=== PATIENT | female | born 1940 | race Caucasian/White ===

== ENCOUNTER → 2017-10-21 11:10 | Outpatient (CLI) | payer OTHER, SELFPAY ==
--- NOTE | 2017-10-21 | DI.MRI.S_ITS ---
PROCEDURE: MR THORACIC SPINE WO/W CON INDICATIONS: NUMBNESS AND TINGLING OF UPPER AND LOWER EXTREMITI TECHNIQUE: Noncontrast sagittal T1 spin echo and T2 fast spin echo, sagittal STIR, axial T1 and T2 fast spin echo through the thoracic spine. In this patient, coronal T2-weighted images were also performed. After the administration of contrast, axial and sagittal T1 spin echo with fat saturation through the thoracic spine. COMPARISON: [facility], , MRI L-SPINE W/O CONTRAST, 11/19/2005, 15:00. [facility], MR, C-SPINE W&WO CONTRAST, 07/20/2017, 14:10. FINDINGS: Image quality: Diagnostic, with note made of motion artifact. Alignment and curvature: Accentuated thoracic kyphosis is seen. Mild dextroconvex scoliotic curvature is seen. Marrow: Marrow is of normal overall signal. No acute vertebral body compression fractures. Scattered foci are seen, which are hyperintense on T1-weighted and T2-weighted imaging, which are most consistent with benign vertebral body hemangiomas. Spinal cord: Visualized spinal cord is of normal signal and size, without abnormal enhancement. Paraspinous soft tissues: No paravertebral masses or abnormal enhancement. Miscellaneous: Pectus excavatum deformity is seen. At T8-T9, there is a mild central/left disc protrusion, as on series 7 image 26. Minimal central canal narrowing is seen. No neural foraminal narrowing is seen. IMPRESSION: No imaging explanation is found for this patient's presenting symptoms. Dextroconvex scoliotic curvature and accentuated thoracic kyphosis. Pectus excavatum deformity can be seen. Mild focal degenerative change is seen at T8-T9. Dictated by: Federico Clemnets M.D. on 10/21/2017 at 11:39 Approved by: Federico Clements M.D. on 10/21/2017 at 11:44
[2017-10-21 11:56] LABS: Estimated Glomerular Filt Rate > 60.0 mL/min (>60)
== END ==
PROVIDERS: Family Provider Physician Assistant; PCP Physician Assistant; Visit Provider Specialist
DX: R20.0 Anesthesia of skin (principal); R20.2 Paresthesia of skin
CPT/HCPCS: 36415; 72157; 82565; A9579

== ENCOUNTER 2018-02-20 20:09 | Emergency (ER) | payer OTHER, SELFPAY ==
[2018-02-20] VITALS (7 sets, daily range): BP systolic 126–152; BP diastolic 75–123; PULSE 76–133; RESP 15–16; TEMP 34.1–36.3; O2SAT 96–100
[2018-02-20 21:01] LABS: Add Manual Diff / Slide Review NO; Basophils Percent Auto 0.8 % (0-2); Eosinophils Percent Auto 0.3 % (2-4); Hematocrit 46.1 % (36-46); Hemoglobin 15.3 g/dL (12.0-16.0); Lymphocytes Percent Auto 17.1 % (25-40); Mean Corpuscular HGB Conc 33.3 % (30-36); Mean Corpuscular Volume 93.1 fL (80-100); Neutrophils Absolute Auto 7900 /uL (3000-5900); Neutrophils Percent Auto 78.8 % (50-75); Platelet Count 234 X10^3/uL (150-400); Red Blood Cell Count 4.95 X10^6/uL (4.0-5.2); Red Cell Distribution Width 13.7 % (11.6-14.8)
[2018-02-20 21:02] LABS: Prothrombin Time 10.8 SECONDS (10.1-12.7)
[2018-02-20 21:05] LABS: PTT Partial Thromboplastin Tim 23 SECONDS (26.4-36.2)
[2018-02-20 21:07] LABS: Alanine Aminotransferase 38 IU/L (9-52); Albumin 4.3 g/dL (3.5-5.0); Albumin Globulin Ratio 1.6 (1.0-2.8); Alkaline Phosphatase 80 U/L (38-126); Aspartate Aminotransferase 44 IU/L (14-36); BUN Creatinine Ratio 21.7 (6-22); Bilirubin Total 0.6 mg/dL (0.2-1.3); Blood Urea Nitrogen 13 mg/dL (7-17); Calcium 8.8 mg/dL (8.4-10.2); Carbon Dioxide 27 mmol/L (22-32); Chloride 103 mmol/L (98-107); Creatine Kinase 48 U/L (30-135); Estimated Glomerular Filt Rate > 60.0 mL/min (>60); Globulin 2.7 g/dL (1.7-4.1); Glucose 146 mg/dL (80-110); Lipase 188 U/L (23-300); Potassium 3.4 mmol/L (3.4-5.1); Sodium 145 mmol/L (137-145)
[2018-02-20 21:08] LABS: Lactate (Lactic Acid) 1.1 mmol/L (0.7-2.1)
--- NOTE | 2018-02-20 21:23 | DI.CT.S_ITS ---
PROCEDURE: CT HEAD/BRAIN WO CON INDICATIONS: mental status change TECHNIQUE: Noncontrast 4.5 mm thick angled axial sections acquired from the foramen magnum to the vertex, with coronal and sagittal reformats. For radiation dose reduction, the following was used: automated exposure control, adjustment of mA and/or kV according to patient size. COMPARISON: None. FINDINGS: Image quality: Excellent. CSF spaces: Basal cisterns are patent. Small left posterior fossa arachnoid cyst. The ventricles are symmetric in size and shape. Brain: No intracranial bleeds or masses. There is cerebral volume loss for age, with resultant ventricular and sulcal prominence. 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 There are periventricular and deep white matter chronic small vessel ischemic changes. There is intracranial internal carotid artery and vertebral artery atherosclerosis. Skull and face: Calvarium and visualized facial bones appear intact, without suspicious lesions. Sinuses: Visualized sinuses and mastoids are clear. IMPRESSION: No acute intracranial disease process. Dictated by: Hemalatha Joshua MD, PhD on 02/21/2018 at 7:43 Approved by: Hemalatha Joshua MD, PhD on 02/21/2018 at 17:41
[2018-02-20 21:26] LABS: RBC Urine None Seen (0-5/HPF); WBC Urine None Seen (0-5/HPF)
[2018-02-20 21:35] LABS: Bacteria Urine Few (2-10); Culture Indicated Urine Cult Not Indicated; Squamous Epithelial Cell Urine 1-5 /HPF; Urine Amphetamines Negative (Negative); Urine Barbiturates Negative (Negative); Urine Benzodiazepines Negative (Negative); Urine Cocaine Negative (Negative); Urine MDMA Negative (Negative); Urine Methadone Negative (Negative); Urine Methamphetamines Negative (Negative); Urine Morphine/Opi cutoff 2000 Negative (Negative); Urine Oxycodone Negative (Negative); Urine Phencyclidine Negative (Negative); Urine Tetrahydrocannabinol Negative (Negative); Urine Tricyclic Antidepressant Negative (Negative)
[2018-02-20] MEDS: dilTIAZem 5 MG/ML SDV 10 MG IV (21:35)
[2018-02-20 21:57] LABS: HEMOLYSIS < 15 (0-50)
[2018-02-20 21:59] LABS: Troponin I < 0.012 ng/mL (0.01-0.034)
--- NOTE | 2018-02-20 23:35 | ED_ITS ---
HPI - Abdominal Pain General Chief Complaint: Abdominal Pain Stated Complaint: Abd Pain N/V Time Seen by Provider: 02/20/18 20:12 Source: patient, family and EMS Mode of arrival: EMS Limitations: no limitations History of Present Illness HPI narrative: 77-year-old nonsmoker presents by EMS for evaluation of worsening weakness over the course of the day. She had multiple episodes of nausea and vomiting in the absence of pain, fever or chills. She denies any exposure to bad food, ill persons or recent antibiotics. She became significantly weak and laid on the ground for approximately 3 hr prior to EMS arrival. When they found her she had a blood pressure in the 70s. She had an IV placed and was administered IV fluids. She denies any chest pain or shortness of breath. She denies any palpitations or history of atrial fibrillation. Onset (ago): hour(s) Severity: moderate Related Data Home Medications Medication Instructions Recorded Confirmed CHONDROITIN SULFATE/GLUCOSAM #0 03/22/11 (CHRONDROITIN GLUCOSAMINE COMPLEX 400 MG-500 M) ESTRADIOL (#ESTRING) 1 [id number] #0 03/22/11 GLUCOS/MSM/COLG II/C/MAN/HRB21 #0 03/22/11 (Glucosamine-MSM Complex Cap) TRIAMCINOLONE NASAL INHALER #0 03/22/11 (#NASACORT) beclomethasone dipropionate [Qvar] #0 03/22/11 niacin #0 03/22/11 Allergies Allergy/AdvReac Type Severity Reaction Status Date / Time Latex Allergy Mild RASH Uncoded 08/10/17 11:53 Review of Systems Review of Systems All systems reviewed & are unremarkable except as noted in HPI and below Constitutional Denies chills, Denies fever(s), Denies lethargy and Reports weakness Eyes Denies change in vision, Denies eye discharge, Denies irritation and Denies loss of vision ENT Ears, Nose, Mouth, and Throat: Denies change in voice, Denies neck pain and Denies sore throat Cardiovascular Denies chest pain, Denies irregular heart rhythm, Denies lightheadedness, Denies palpitations, Denies dyspnea, Denies dyspnea on exertion and Denies orthopnea Respiratory Denies cough, Denies dyspnea, Denies dyspnea on exertion and Denies wheezing Gastrointestinal Gastrointestinal: Denies abdominal pain, Denies change in bowel habits, Denies diarrhea, Reports nausea and Reports vomiting Genitourinary Denies hematuria, Denies flank pain, Denies urinary incontinence and Denies urinary urgency Musculoskeletal Denies neck pain Integumentary/Breasts Denies pruritus, Denies erythema, Denies rash and Denies wounds Neurologic Denies confusion, Denies loss of vision and Reports weakness Psychiatric Denies anxiety, Denies confusion, Denies depression, Denies homicidal ideation and Denies suicidal ideation Endocrine Denies palpitations Hematologic/Lymphatic Denies easy bruising Allergic/Immunologic Denies wheezing [facility] Medical History HTN (hypertension) (Acute) Exam Narrative Exam Narrative: 77-year-old female resting comfortably Initial Vital Signs Initial Vital Signs: Vital Signs Temperature 93.3 F L 02/20/18 20:22 Pulse Rate 106 H 02/20/18 20:22 Respiratory Rate 15 02/20/18 20:22 Blood Pressure 152/101 H 02/20/18 20:22 Pulse Oximetry 100 02/20/18 20:22 Const General: cooperative, well developed and in distress Nutritional Appearance: well nourished Orientation: alert, awake, oriented x3 and not confused HENTX Head: normocephalic and atraumatic Ears: external ears normal and TM's normal bilaterally Nose: external nose normal and No nasal discharge Face and sinus: sinuses nontender, face symmetric, no sinus tenderness and dry mucous membranes Teeth and gingiva: dentition normal Throat: tonsils normal and uvula midline Eyes General: appearance normal, both eyes and all related structures Eyelids: eyelids normal Conjunctivae: conjunctivae normal Sclera: sclerae normal Pupils: PERRL EOM: EOM intact bilaterally Chest Chest: normal inspection of the chest Resp Effort & Inspection: normal respiratory effort, able to speak in complete sentences, no respiratory distress and no use of accessory muscles Auscultation: clear to auscultation bilaterally, no rales, no rhonchi and no wheezes Cardio Rate: tachycardic Rhythm: abnormal rhythm Heart Sounds: no click, no gallops, no murmurs and no rubs Pulses: normal peripheral pulses GI Inspection: non-distended Palpation: soft, no hepatosplenomegaly, No guarding, No pulsatile mass and No tender Auscultation: normal bowel sounds Back/Spine/Pelvis Back: No CVA tenderness Cervical Spine: cervical ROM normal and No pain with cervical ROM Thoracic/Lumbar Spine: thoracic and lumbar spine normal to inspection Neuro General: alert, awake and oriented x3 Speech: speech normal Gait: normal gait Other: Patient is alert and oriented x3 with a GCS15 but is in some immeasurable way slightly sluggish in her responses Extrem General: full ROM, no clubbing, cyanosis or edema, no pedal edema and no calf tenderness Psych Appearance: well kempt Mental Status: mental status grossly normal Attitude: cooperative Thought Content: normal and suicidality Judgment: judgment good Course Course Narrative: Patient arrived obviously dehydrated but improved after fluids by EMS. Initial EKG notes AFib in the 130s without signs of ischemia. She was given a 2nd bag of fluid and had Cardizem 10 mg administered which converted her to a normal sinus rhythm in the 60s to 70s. At no point did the patient have palpitations, chest pain or shortness of breath. Labs are by enlarge normal. Orthostatics were performed here in the department and though she remained asymptomatic her heart rate jumped to the 130s with sitting and standing. Given her orthostasis and newly discovered atrial fibrillation patient is not appropriate for discharge. There are no remaining telemetry beds at our facility and [facility] has placed her at [facility] in [place] with the receiving doctor Levy Curran. Orders Ordered: ED Orders 02/20/18 20:13 EKG-12 Lead Stat 02/20/18 20:44 Blood Culture Stat Complete Blood Count AUTO DIFF Stat Comprehensive Metabolic Panel Stat Lactate (Lactic Acid) Stat Lipase Stat Partial Thromboplastin Time Stat Prothrombin Time INR Stat Troponin & CK Cardiac Panel Stat 02/20/18 21:10 Urine Drug Screen, Rapid Stat Urine Microscopic Stat 02/20/18 21:23 CT head/brain wo con Stat Enoxaparin Sodium (Lovenox) 40 mg SUBCUT DAILY [facility] Last Admin: 02/21/18 00:09 Dose: 40 mg Discontinued Medications Diltiazem HCl (Cardizem) 10 mg IV NOW ONE Stop: 02/20/18 21:31 Last Admin: 02/20/18 21:35 Dose: 10 mg Vital Signs - 8 hr 02/20/18 20:22 02/20/18 21:01 02/20/18 21:34 Temperature 93.3 F L 94.1 F L 97.4 F L Pulse Rate 106 H 133 H 123 H Pulse Rate [Orthostatic Lying] Pulse Rate [Orthostatic Sitting] Pulse Rate [Orthostatic Standing] Respiratory Rate 15 16 16 Blood Pressure 152/101 H Blood Pressure [Left Arm] 145/123 H 129/88 Blood Pressure [Orthostatic Lying] Blood Pressure [Orthostatic Sitting] Blood Pressure [Orthostatic Standing] Pulse Oximetry 100 99 97 02/20/18 21:35 02/20/18 22:17 02/20/18 22:57 Temperature Pulse Rate 115 H 91 H Pulse Rate [Orthostatic Lying] 94 H Pulse Rate [Orthostatic Sitting] 130 H Pulse Rate [Orthostatic Standing] 88 Respiratory Rate Blood Pressure 129/88 Blood Pressure [Left Arm] 138/82 Blood Pressure [Orthostatic Lying] 133/75 Blood Pressure [Orthostatic Sitting] 130/94 H Blood Pressure [Orthostatic Standing] 133/92 H Pulse Oximetry 96 02/20/18 23:13 02/21/18 00:53 Temperature Pulse Rate 76 105 H Pulse Rate [Orthostatic Lying] Pulse Rate [Orthostatic Sitting] Pulse Rate [Orthostatic Standing] Respiratory Rate Blood Pressure Blood Pressure [Left Arm] 126/77 151/62 H Blood Pressure [Orthostatic Lying] Blood Pressure [Orthostatic Sitting] Blood Pressure [Orthostatic Standing] Pulse Oximetry 98 100 MDM - Abdominal Pain Lab Data Attestation: I reviewed the patient's lab results. Result diagrams: 02/20/18 20:44 02/20/18 20:44 Lab Results 02/20/18 02/20/18 02/20/18 Range/Units 20:44 20:44 20:44 WBC 10.0 (4.5-11.0) X10^3/uL RBC 4.95 (4.0-5.2) X10^6/uL Hgb 15.3 (12.0-16.0) g/dL Hct 46.1 H (36-46) % MCV 93.1 (80-100) fL MCH 31.0 (26-34) PG MCHC 33.3 (30-36) % RDW 13.7 (11.6-14.8) % Plt Count 234 (150-400) X10^3/uL Neut % (Auto) 78.8 H (50-75) % Lymph % (Auto) 17.1 L (25-40) % [place] % (Auto) 3.0 (3-14) % Eos % (Auto) 0.3 L (2-4) % Baso % (Auto) 0.8 (0-2) % Neut # (Auto) 7900 H (8462-1966) /uL PT 10.8 (10.1-12.7) SECONDS INR 1.0 (0.9-1.3) APTT 23 L (26.4-36.2) SECONDS Sodium 145 (137-145) mmol/L Potassium 3.4 (3.4-5.1) mmol/L Chloride 103 (98-107) mmol/L Carbon Dioxide 27 (22-32) mmol/L BUN 13 (7-17) mg/dL Creatinine 0.60 (0.52-1.04) mg/dL Estimated GFR > 60.0 (>60) mL/min BUN/Creatinine Ratio 21.7 (6-22) Glucose 146 H (80-110) mg/dL Lactate (0.7-2.1) mmol/L Calcium 8.8 (8.4-10.2) mg/dL Total Bilirubin 0.6 (0.2-1.3) mg/dL AST 44 H (14-36) IU/L ALT 38 (9-52) IU/L Alkaline Phosphatase 80 (38-126) U/L Total Creatine Kinase 48 (30-135) U/L CK-MB (CK-2) TNP CK-MB (CK-2) Rel Index TNP Troponin I < 0.012 (0.01-0.034) ng/mL Total Protein 7.0 (6.3-8.2) g/dL Albumin 4.3 (3.5-5.0) g/dL Globulin 2.7 (1.7-4.1) g/dL Albumin/Globulin Ratio 1.6 (1.0-2.8) Lipase 188 (23-300) U/L Urine RBC (0-5/HPF) Urine WBC (0-5/HPF) Ur Squamous Epith Cells Urine Bacteria (None) Ur Culture Indicated? Micro UA Comment Urine Opiates Screen (Negative) Ur Oxycodone Screen (Negative) Urine Methadone Screen (Negative) Ur Barbiturates Screen (Negative) U Tricyclic Antidepress (Negative) Ur Phencyclidine Scrn (Negative) Ur Amphetamines Screen (Negative) U Methamphetamines Scrn (Negative) Ur MDMA Scrn (Ecstasy) (Negative) U Benzodiazepines Scrn (Negative) Urine Cocaine Screen (Negative) U Marijuana (THC) Screen (Negative) 02/20/18 02/20/18 02/20/18 Range/Units 20:44 21:10 21:10 WBC (4.5-11.0) X10^3/uL RBC (4.0-5.2) X10^6/uL Hgb (12.0-16.0) g/dL Hct (36-46) % MCV (80-100) fL MCH (26-34) PG MCHC (30-36) % RDW (11.6-14.8) % Plt Count (150-400) X10^3/uL Neut % (Auto) (50-75) % Lymph % (Auto) (25-40) % [place] % (Auto) (3-14) % Eos % (Auto) (2-4) % Baso % (Auto) (0-2) % Neut # (Auto) (1772-7382) /uL PT (10.1-12.7) SECONDS INR (0.9-1.3) APTT (26.4-36.2) SECONDS Sodium (137-145) mmol/L Potassium (3.4-5.1) mmol/L Chloride (98-107) mmol/L Carbon Dioxide (22-32) mmol/L BUN (7-17) mg/dL Creatinine (0.52-1.04) mg/dL Estimated GFR (>60) mL/min BUN/Creatinine Ratio (6-22) Glucose (80-110) mg/dL Lactate 1.1 (0.7-2.1) mmol/L Calcium (8.4-10.2) mg/dL Total Bilirubin (0.2-1.3) mg/dL AST (14-36) IU/L ALT (9-52) IU/L Alkaline Phosphatase (38-126) U/L Total Creatine Kinase (30-135) U/L CK-MB (CK-2) CK-MB (CK-2) Rel Index Troponin I (0.01-0.034) ng/mL Total Protein (6.3-8.2) g/dL Albumin (3.5-5.0) g/dL Globulin (1.7-4.1) g/dL Albumin/Globulin Ratio (1.0-2.8) Lipase (23-300) U/L Urine RBC None seen (0-5/HPF) Urine WBC None seen (0-5/HPF) Ur Squamous Epith Cells 1-5 /hpf Urine Bacteria Few (2-10) H (None) Ur Culture Indicated? Cult not indicated Micro UA Comment Not Reportable Urine Opiates Screen Negative (Negative) Ur Oxycodone Screen Negative (Negative) Urine Methadone Screen Negative (Negative) Ur Barbiturates Screen Negative (Negative) U Tricyclic Antidepress Negative (Negative) Ur Phencyclidine Scrn Negative (Negative) Ur Amphetamines Screen Negative (Negative) U Methamphetamines Scrn Negative (Negative) Ur MDMA Scrn (Ecstasy) Negative (Negative) U Benzodiazepines Scrn Negative (Negative) Urine Cocaine Screen Negative (Negative) U Marijuana (THC) Screen Negative (Negative) Point of care testing: Urine Dip Bedside Urine Glucose Negative Bedside Urine Bilirubin - Negative Bedside Urine Ketone ++ 40 Urine Specific [place] 1.015 Bedside Urine Occult Blood - Negative Bedside Urine pH 7.0 Bedside Urine Protein - Negative Bedside Urine Urobilinogen - Negative Bedside Urine Nitrite - Negative Bedside Urine Leukocytes - Negative Esterase ECG Data Attestation: I personally reviewed and interpreted this ECG as follows: Prior ECG tracings: not available for review Interpretation: atrial fib in 130s, no ischemia with ST depression/elevation or T wave inversion MDM Narrative Medical decision making narrative: no beds at our facility, call to [facility], they agree with need for admission and wish to place patient at [facility] Discharge Plan Departure Patient Disposition: er [facility] Clinical Impression: Atrial fibrillation, Orthostasis Prescriptions: No Action TRIAMCINOLONE NASAL INHALER (#NASACORT) Qty: 0 RF: 0 beclomethasone dipropionate [Qvar] 80 MCG/PUFF aerosol Qty: 0 RF: 0 CHONDROITIN SULFATE/GLUCOSAM (CHRONDROITIN GLUCOSAMINE COMPLEX 400 MG-500 M) Qty: 0 RF: 0 GLUCOS/MSM/COLG II/C/MAN/HRB21 (Glucosamine-MSM Complex Cap) Qty: 0 RF: 0 ESTRADIOL (#ESTRING) 1 [id number] Qty: 0 RF: 0 niacin 250 MG tablet Qty: 0 RF: 0
[2018-02-21] MEDS: ENOXAPARIN 40 MG/0.4 ML SYRINGE SUBCUT (00:09)
[2018-02-21 00:53] VITALS: BP 151/62; PULSE 105; O2SAT 100
[2018-02-21 02:10] VITALS: BP 109/60; PULSE 59; RESP 15; O2SAT 95
[2018-02-21 02:50] VITALS: BP 118/60; PULSE 74; O2SAT 97
[2018-02-21 03:00] VITALS: BP 118/60; PULSE 85; RESP 16; O2SAT 98
== END 2018-02-21 03:07 | disposition short-term general hospital (02) ==
PROVIDERS: Emergency Provider Emergency Medicine; Family Provider Physician Assistant; PCP Physician Assistant
DX: I48.91 Unspecified atrial fibrillation (principal); I95.1 Orthostatic hypotension
CPT/HCPCS: 36415; 70450; 80053; 80305; 81003; 81015; 82550; 83605; 83690; 84484; 85025; 85610; 85730; 87040; 93005; 93010; 96374; 99284; 99285; J1650

== ENCOUNTER 2018-05-30 17:01 | Emergency (ER) | payer OTHER, SELFPAY ==
[2018-05-30 17:25] VITALS: BP 185/86; PULSE 62; RESP 15; TEMP 36.9; O2SAT 100; BMI 18.3
--- NOTE | 2018-05-30 17:29 | DI.RAD.S_ITS ---
PROCEDURE: XR KNEE RT 3V INDICATIONS: right knee pain s/p fall TECHNIQUE: 3 views of the knee were acquired. COMPARISON: None. FINDINGS: Bones: No fractures or dislocations. There is minimal joint space narrowing in the medial compartment and lateral patellofemoral compartment. No suspicious bony lesions. Soft tissues: There is a small joint effusion. No suspicious soft tissue calcifications. IMPRESSION: 1. No fracture or dislocation. 2. Small joint effusion. 3. Mild degenerative changes. Dictated by: Nish Delgado M.D. on 05/30/2018 at 18:16 Approved by: Nish Delgado M.D. on 05/30/2018 at 18:17
--- NOTE | 2018-05-30 20:35 | ED.LOWEXIN ---
HPI - Extremity Injury (Lower) General Chief Complaint: Extremity Injury, Lower Stated Complaint: KNEE PAIN S/P FALL Time Seen by Provider: 05/30/18 20:06 Source: patient and family Mode of arrival: ambulatory Limitations: no limitations History of Present Illness HPI Narrative: 78-year-old female, nonsmoker with early dementia presents with multiple family members and a chief complaint right knee pain after a trip and fall earlier today. She fell forward landing on her right knee on concrete. She denies any twisting motion. She has no head neck or back pain. She denies any hip or ankle pain. Her pain is worse when she bends it and improves with rest MD complaint: knee injury Onset (ago): hour(s) Type of Injury: blunt Place: street/outdoors Severity: moderate Relieving factors: immobilization and rest Exacerbating factors: weight bearing, movement and palpation Context: fall and direct blow Associated symptoms: able to partially bear weight Other symptoms: none Related Data Home Medications Medication Instructions Recorded Confirmed CHONDROITIN SULFATE/GLUCOSAM #0 03/22/11 (CHRONDROITIN GLUCOSAMINE COMPLEX 400 MG-500 M) ESTRADIOL (#ESTRING) 1 [id number] #0 03/22/11 GLUCOS/MSM/COLG II/C/MAN/HRB21 #0 03/22/11 (Glucosamine-MSM Complex Cap) TRIAMCINOLONE NASAL INHALER #0 03/22/11 (#NASACORT) niacin #0 03/22/11 albuterol sulfate [Ventolin HFA] 2 puff INHALATION Q4-6H PRN 05/30/18 05/30/18 baclofen 10 mg PO DAILY 05/30/18 05/30/18 beclomethasone dipropionate [Qvar 2 puff INHALATION DAILY 05/30/18 05/30/18 RediHaler] donepezil 10 mg PO DAILY 05/30/18 05/30/18 Allergies Allergy/AdvReac Type Severity Reaction Status Date / Time latex AdvReac Verified 05/30/18 17:25 Review of Systems Constitutional Denies chills, Denies fever(s), Denies lethargy and Denies weakness Eyes Denies change in vision, Denies eye discharge, Denies irritation and Denies loss of vision ENT Ears, Nose, Mouth, and Throat: Denies change in voice, Denies neck pain and Denies sore throat Cardiovascular Denies chest pain, Denies irregular heart rhythm, Denies lightheadedness, Denies palpitations, Denies dyspnea, Denies dyspnea on exertion and Denies orthopnea Respiratory Denies cough, Denies dyspnea, Denies dyspnea on exertion and Denies wheezing Gastrointestinal Gastrointestinal: Denies abdominal pain, Denies change in bowel habits, Denies diarrhea, Denies nausea and Denies vomiting Genitourinary Denies hematuria, Denies flank pain, Denies urinary incontinence and Denies urinary urgency Musculoskeletal Reports abnormal gait, Reports limited range of motion and Denies neck pain Integumentary/Breasts Denies pruritus, Denies erythema, Denies rash and Denies wounds Neurologic Reports abnormal gait, Denies confusion, Denies loss of vision and Denies weakness Psychiatric Denies anxiety, Denies confusion, Denies depression, Denies homicidal ideation and Denies suicidal ideation Endocrine Denies palpitations Hematologic/Lymphatic Denies easy bruising Allergic/Immunologic Denies wheezing [facility] Medical History HTN (hypertension) (Acute) Social History Smoking Status: Smoker, status unknown Social History Smoking Status: Smoker, status unknown Exam Narrative Exam Narrative: GEN: 78-year-old female, pleasant, in minimal distress when resting EYES: Pupils are equal, round, and reactive to light and accommodation. Extraoccular muscles are intact bilaterally. There is no subconjunctival hemorrhage or exudate. CHEST: Lungs are clear to auscultation bilaterally and free of wheezes, rales, or rhonchi. Heart rate is regular rhythm, there are no murmurs, clicks, rubs, or gallops. There is no chest wall tenderness. ABD: Abdomen is soft and nontender. There is no guarding or rebound. Bowel sounds are normal in all 4 quadrants. There is no mass or organomegaly. EXT: No obvious external manifestation of injury. No effusion, redness or warmth. Minimal tenderness anteriorly along patella. No joint line tenderness medially or laterally. No ligamentous instability. SKIN: Warm, pink, and dry. No erythema or rash Initial Vital Signs Initial Vital Signs: Vital Signs Temperature 98.4 F 05/30/18 17:25 Pulse Rate 62 05/30/18 17:25 Respiratory Rate 15 05/30/18 17:25 Blood Pressure 185/86 H 05/30/18 17:25 Pulse Oximetry 100 05/30/18 17:25 Course Orders Ordered: ED Orders 05/30/18 21:22 CT LE RT wo con Stat Reevaluation(s) Reevaluation #1: X-ray and exam are reassuring. Ambulation attempt requires assistance and patient has pain with ambulation therefore CT ordered Vital Signs - 8 hr 05/30/18 22:25 Pulse Rate 69 Respiratory Rate 17 Blood Pressure [Left Arm] 170/69 H Pulse Oximetry 97 MDM - Extremity Injury (Lower) Medical Records Attestation: I reviewed the patient's medical records. Imaging Data CT Knee: Radiologist's impression: [address] [address] [address] Scan Report Signed Patient: Karine GrantMR#: [id number] : 9Acct:[id number] Age/Sex: 78 / FDate of Service: 05/30/18 Loc: ED Accession Number: [id number] Procedure: CT LE RT wo con Ordering Provider: Gilberto Lobato D.O. PROCEDURE: CT LE RT WO CON INDICATIONS: R knee pain, s/p fall, normal xray TECHNIQUE: Noncontrast 1-1.5 mm axial sections acquired from the mid-patella to the proximal tibia, with coronal and sagittal reformats. COMPARISON: [facility], , XR KNEE RT 3V, 05/30/2018, 17:35. FINDINGS: Image quality: Excellent. Bones: No displaced or depressed fracture identified. There is tricompartmental osteophytosis. Mild joint space narrowing is demonstrated within the medial and lateral compartments. There is slight lateral shift of the patella. Soft tissues: There is a small to moderate knee joint effusion. No definite lipohemarthrosis. Evaluation of the ACL and PCL is limited on CT. The quadriceps and patella tendons appear intact. The medial collateral ligament and lateral collateral complex appear grossly intact. There is nonspecific fat stranding within the infrapatellar fat pad. IMPRESSION: 1. No displaced or depressed fracture identified. 2. Small to moderate joint effusion. 3. If clinical concern persists for soft tissue injury, further evaluation may be obtained with MRI. Dictated by: Nish Delgado M.D. on 05/30/2018 at 22:13 Approved by: Nish Delgado M.D. on 05/30/2018 at 22:17 [facility] Narrative Medical decision making narrative: Multiple etiologies for patient's symptoms considered including: [Fracture, versus contusion, versus dislocation, versus internal derangement versus other] Patient's symptoms improved or duration of stay with above-stated therapies. Findings and discharge diagnosis discussed with patient/family followed by verbalization of understanding Return precautions discussed with patient/family whom verbalize understanding. Discharge Plan Departure Patient Disposition: Home Clinical Impression: Contusion of knee Discharge Date/Time: 05/30/18 22:57 Interventions: ED Discharge Assessment Last Done: 05/30/18 22:57 Instructions: DI for Contusion Activity Restrictions/Additional Instructions: *You have been diagnosed with [ right knee contusion ] *What to do: * continue to take medications as directed *Follow up with your primary care provider in 2-3 days, call for an appointment. Let them know you were seen in the Emergency Department and that we ask that you be seen in follow up *Return to ER if you should have any new, worsening or concerning symptoms Prescriptions: No Action TRIAMCINOLONE NASAL INHALER (#NASACORT) Qty: 0 RF: 0 CHONDROITIN SULFATE/GLUCOSAM (CHRONDROITIN GLUCOSAMINE COMPLEX 400 MG-500 M) Qty: 0 RF: 0 GLUCOS/MSM/COLG II/C/MAN/HRB21 (Glucosamine-MSM Complex Cap) Qty: 0 RF: 0 ESTRADIOL (#ESTRING) 1 [id number] Qty: 0 RF: 0 niacin 250 MG tablet Qty: 0 RF: 0 donepezil 10 mg tablet 10 mg PO DAILY RF: 0 baclofen 10 mg tablet 10 mg PO DAILY RF: 0 albuterol sulfate [Ventolin HFA] 90 mcg/actuation HFA aerosol inhaler 2 puff Inhalation Q4-6H PRN (Reason: Shortness Of Breath) RF: 0 beclomethasone dipropionate [Qvar RediHaler] 80 mcg/actuation HFA aerosol breath activated 2 puff Inhalation DAILY RF: 0
--- NOTE | 2018-05-30 20:41 | ED_ITS ---
HPI - Extremity Injury (Lower) General Chief Complaint: Extremity Injury, Lower Stated Complaint: KNEE PAIN S/P FALL Time Seen by Provider: 05/30/18 20:06 Source: patient and family Mode of arrival: ambulatory Limitations: no limitations History of Present Illness HPI Narrative: 78-year-old female, nonsmoker with early dementia presents with multiple family members and a chief complaint right knee pain after a trip and fall earlier today. She fell forward landing on her right knee on concrete. She denies any twisting motion. She has no head neck or back pain. She denies any hip or ankle pain. Her pain is worse when she bends it and improves with rest MD complaint: knee injury Onset (ago): hour(s) Type of Injury: blunt Place: street/outdoors Severity: moderate Relieving factors: immobilization and rest Exacerbating factors: weight bearing, movement and palpation Context: fall and direct blow Associated symptoms: able to partially bear weight Other symptoms: none Related Data Home Medications Medication Instructions Recorded Confirmed CHONDROITIN SULFATE/GLUCOSAM #0 03/22/11 (CHRONDROITIN GLUCOSAMINE COMPLEX 400 MG-500 M) ESTRADIOL (#ESTRING) 1 [id number] #0 03/22/11 GLUCOS/MSM/COLG II/C/MAN/HRB21 #0 03/22/11 (Glucosamine-MSM Complex Cap) TRIAMCINOLONE NASAL INHALER #0 03/22/11 (#NASACORT) niacin #0 03/22/11 albuterol sulfate [Ventolin HFA] 2 puff INHALATION Q4-6H PRN 05/30/18 05/30/18 baclofen 10 mg PO DAILY 05/30/18 05/30/18 beclomethasone dipropionate [Qvar 2 puff INHALATION DAILY 05/30/18 05/30/18 RediHaler] donepezil 10 mg PO DAILY 05/30/18 05/30/18 Allergies Allergy/AdvReac Type Severity Reaction Status Date / Time latex AdvReac Verified 05/30/18 17:25 Review of Systems Constitutional Denies chills, Denies fever(s), Denies lethargy and Denies weakness Eyes Denies change in vision, Denies eye discharge, Denies irritation and Denies loss of vision ENT Ears, Nose, Mouth, and Throat: Denies change in voice, Denies neck pain and Denies sore throat Cardiovascular Denies chest pain, Denies irregular heart rhythm, Denies lightheadedness, Denies palpitations, Denies dyspnea, Denies dyspnea on exertion and Denies orthopnea Respiratory Denies cough, Denies dyspnea, Denies dyspnea on exertion and Denies wheezing Gastrointestinal Gastrointestinal: Denies abdominal pain, Denies change in bowel habits, Denies diarrhea, Denies nausea and Denies vomiting Genitourinary Denies hematuria, Denies flank pain, Denies urinary incontinence and Denies urinary urgency Musculoskeletal Reports abnormal gait, Reports limited range of motion and Denies neck pain Integumentary/Breasts Denies pruritus, Denies erythema, Denies rash and Denies wounds Neurologic Reports abnormal gait, Denies confusion, Denies loss of vision and Denies weakness Psychiatric Denies anxiety, Denies confusion, Denies depression, Denies homicidal ideation and Denies suicidal ideation Endocrine Denies palpitations Hematologic/Lymphatic Denies easy bruising Allergic/Immunologic Denies wheezing [facility] Medical History HTN (hypertension) (Acute) Social History Smoking Status: Smoker, status unknown Social History Smoking Status: Smoker, status unknown Exam Narrative Exam Narrative: GEN: 78-year-old female, pleasant, in minimal distress when resting EYES: Pupils are equal, round, and reactive to light and accommodation. Extraoccular muscles are intact bilaterally. There is no subconjunctival hemorrhage or exudate. CHEST: Lungs are clear to auscultation bilaterally and free of wheezes, rales, or rhonchi. Heart rate is regular rhythm, there are no murmurs, clicks, rubs, or gallops. There is no chest wall tenderness. ABD: Abdomen is soft and nontender. There is no guarding or rebound. Bowel sounds are normal in all 4 quadrants. There is no mass or organomegaly. EXT: No obvious external manifestation of injury. No effusion, redness or warmth. Minimal tenderness anteriorly along patella. No joint line tenderness medially or laterally. No ligamentous instability. SKIN: Warm, pink, and dry. No erythema or rash Initial Vital Signs Initial Vital Signs: Vital Signs Temperature 98.4 F 05/30/18 17:25 Pulse Rate 62 05/30/18 17:25 Respiratory Rate 15 05/30/18 17:25 Blood Pressure 185/86 H 05/30/18 17:25 Pulse Oximetry 100 05/30/18 17:25 Course Orders Ordered: ED Orders 05/30/18 21:22 CT LE RT wo con Stat Reevaluation(s) Reevaluation #1: X-ray and exam are reassuring. Ambulation attempt requires assistance and patient has pain with ambulation therefore CT ordered Vital Signs - 8 hr 05/30/18 22:25 Pulse Rate 69 Respiratory Rate 17 Blood Pressure [Left Arm] 170/69 H Pulse Oximetry 97 MDM - Extremity Injury (Lower) Medical Records Attestation: I reviewed the patient's medical records. Imaging Data CT Knee: Radiologist's impression: [address] [address] [address] Scan Report Signed Patient: Karine GrantMR#: [id number] : 9Acct:[id number] Age/Sex: 78 / FDate of Service: 05/30/18 Loc: ED Accession Number: [id number] Procedure: CT LE RT wo con Ordering Provider: Gilberto Lobato D.O. PROCEDURE: CT LE RT WO CON INDICATIONS: R knee pain, s/p fall, normal xray TECHNIQUE: Noncontrast 1-1.5 mm axial sections acquired from the mid-patella to the proximal tibia, with coronal and sagittal reformats. COMPARISON: [facility], , XR KNEE RT 3V, 05/30/2018, 17:35. FINDINGS: Image quality: Excellent. Bones: No displaced or depressed fracture identified. There is tricompartmental osteophytosis. Mild joint space narrowing is demonstrated within the medial and lateral compartments. There is slight lateral shift of the patella. Soft tissues: There is a small to moderate knee joint effusion. No definite lipohemarthrosis. Evaluation of the ACL and PCL is limited on CT. The quadriceps and patella tendons appear intact. The medial collateral ligament and lateral collateral complex appear grossly intact. There is nonspecific fat stranding within the infrapatellar fat pad. IMPRESSION: 1. No displaced or depressed fracture identified. 2. Small to moderate joint effusion. 3. If clinical concern persists for soft tissue injury, further evaluation may be obtained with MRI. Dictated by: Nish Delgado M.D. on 05/30/2018 at 22:13 Approved by: Nish Delgado M.D. on 05/30/2018 at 22:17 [facility] Narrative Medical decision making narrative: Multiple etiologies for patient's symptoms considered including: [Fracture, versus contusion, versus dislocation, versus internal derangement versus other] Patient's symptoms improved or duration of stay with above-stated therapies. Findings and discharge diagnosis discussed with patient/family followed by verbalization of understanding Return precautions discussed with patient/family whom verbalize understanding. Discharge Plan Departure Patient Disposition: Home Clinical Impression: Contusion of knee Discharge Date/Time: 05/30/18 22:57 Interventions: ED Discharge Assessment Last Done: 05/30/18 22:57 Instructions: DI for Contusion Activity Restrictions/Additional Instructions: *You have been diagnosed with [ right knee contusion ] *What to do: * continue to take medications as directed *Follow up with your primary care provider in 2-3 days, call for an appointment. Let them know you were seen in the Emergency Department and that we ask that you be seen in follow up *Return to ER if you should have any new, worsening or concerning symptoms Prescriptions: No Action TRIAMCINOLONE NASAL INHALER (#NASACORT) Qty: 0 RF: 0 CHONDROITIN SULFATE/GLUCOSAM (CHRONDROITIN GLUCOSAMINE COMPLEX 400 MG-500 M) Qty: 0 RF: 0 GLUCOS/MSM/COLG II/C/MAN/HRB21 (Glucosamine-MSM Complex Cap) Qty: 0 RF: 0 ESTRADIOL (#ESTRING) 1 [id number] Qty: 0 RF: 0 niacin 250 MG tablet Qty: 0 RF: 0 donepezil 10 mg tablet 10 mg PO DAILY RF: 0 baclofen 10 mg tablet 10 mg PO DAILY RF: 0 albuterol sulfate [Ventolin HFA] 90 mcg/actuation HFA aerosol inhaler 2 puff Inhalation Q4-6H PRN (Reason: Shortness Of Breath) RF: 0 beclomethasone dipropionate [Qvar RediHaler] 80 mcg/actuation HFA aerosol breath activated 2 puff Inhalation DAILY RF: 0
--- NOTE | 2018-05-30 21:22 | DI.CT.S_ITS ---
PROCEDURE: CT LE RT WO CON INDICATIONS: R knee pain, s/p fall, normal xray TECHNIQUE: Noncontrast 1-1.5 mm axial sections acquired from the mid-patella to the proximal tibia, with coronal and sagittal reformats. COMPARISON: [facility], CR, XR KNEE RT 3V, 05/30/2018, 17:35. FINDINGS: Image quality: Excellent. Bones: No displaced or depressed fracture identified. There is tricompartmental osteophytosis. Mild joint space narrowing is demonstrated within the medial and lateral compartments. There is slight lateral shift of the patella. Soft tissues: There is a small to moderate knee joint effusion. No definite lipohemarthrosis. Evaluation of the ACL and PCL is limited on CT. The quadriceps and patella tendons appear intact. The medial collateral ligament and lateral collateral complex appear grossly intact. There is nonspecific fat stranding within the infrapatellar fat pad. IMPRESSION: 1. No displaced or depressed fracture identified. 2. Small to moderate joint effusion. 3. If clinical concern persists for soft tissue injury, further evaluation may be obtained with MRI. Dictated by: Nish Delgado M.D. on 05/30/2018 at 22:13 Approved by: Nish Delgado M.D. on 05/30/2018 at 22:17
[2018-05-30 22:25] VITALS: BP 170/69; PULSE 69; RESP 17; O2SAT 97
== END 2018-05-30 22:57 | disposition home or self-care (01) ==
PROVIDERS: Emergency Provider Emergency Medicine; Family Provider Physician Assistant; PCP Physician Assistant
DX: S80.01XA Contusion of right knee, initial encounter (principal); W01.0XXA Fall on same level from slipping, tripping and stumbling without subsequent striking against object, initial encounter
CPT/HCPCS: 73562; 73700; 99283; 99284

== ENCOUNTER 2018-09-06 09:09 | Inpatient (IN) | payer OTHER, SELFPAY ==
[2018-09-06] VITALS (9 sets, daily range): BP systolic 111–148; BP diastolic 53–73; PULSE 58–77; RESP 14–22; TEMP 36.9–37.2; O2SAT 93–100; BMI 16.6
--- NOTE | 2018-09-06 09:42 | ED.FEMALEGU ---
HPI - Female Genitourinary General Chief complaint: Urogenital-Female Stated complaint: vaginal bleeding x2 days Time Seen by Provider: 09/06/18 09:30 Source: patient Mode of arrival: ambulatory Limitations: no limitations History of Present Illness HPI Narrative: 78-year-old nonsmoker with history of asthma presents with a friend and a chief complaint of some blood in the toilet after urinating and taking bowel movements. She is unclear if it is vaginal, in her urine or rectal. She otherwise feels a bit weak and run down and has some abnormal urinating. She takes Pradaxa for AFib. She denies any chest pain or shortness of breath. she denies any headaches, nausea or vomiting. she has had no fever or shaking chills. MD Complaint: dysuria and vaginal bleeding Onset (ago): day(s) Severity: mild Quality: Aching Duration: constant Relieving factors: none Exacerbating factors: none Urinary symptoms: Dysuria and Foul Smelling Urine Vaginal discharge: blood Patient : No Related Data Home Medications Medication Instructions Recorded Confirmed estradiol [Estring] 1 ea VAGINAL [id number] #0 03/22/11 09/06/18 albuterol sulfate [Ventolin HFA] 2 puff INHALATION Q4-6H PRN 05/30/18 09/06/18 baclofen 20 mg PO BEDTIME 05/30/18 09/06/18 beclomethasone dipropionate [Qvar 2 puff INHALATION DAILY 05/30/18 09/06/18 RediHaler] donepezil 20 mg PO DAILY 05/30/18 09/06/18 amlodipine 7.5 mg PO DAILY 09/06/18 09/06/18 dabigatran etexilate [Pradaxa] 150 mg PO BID 09/06/18 09/06/18 lisinopril 20 mg PO BID 09/06/18 09/06/18 metoprolol tartrate 12.5 mg PO BID 09/06/18 09/06/18 quetiapine 25 mg PO DAILY 09/06/18 09/06/18 trospium 60 mg PO DAILY 09/06/18 09/06/18 Allergies Allergy/AdvReac Type Severity Reaction Status Date / Time latex AdvReac Verified 09/06/18 09:39 Review of Systems Constitutional Denies chills, Denies fever(s), Denies lethargy and Denies weakness Eyes Denies change in vision, Denies eye discharge, Denies irritation and Denies loss of vision ENT Ears, Nose, Mouth, and Throat: Denies change in voice, Denies neck pain and Denies sore throat Cardiovascular Denies chest pain, Denies irregular heart rhythm, Denies lightheadedness, Denies palpitations, Denies dyspnea, Denies dyspnea on exertion and Denies orthopnea Respiratory Denies cough, Denies dyspnea, Denies dyspnea on exertion and Denies wheezing Gastrointestinal Gastrointestinal: Denies abdominal pain, Reports hematochezia, Denies change in bowel habits, Denies diarrhea, Denies nausea and Denies vomiting Genitourinary Reports abnormal vaginal bleeding, Denies hematuria, Reports dysuria, Denies flank pain, Denies urinary incontinence and Reports urinary urgency Musculoskeletal Denies neck pain Integumentary/Breasts Denies pruritus, Denies erythema, Denies rash and Denies wounds Neurologic Denies confusion, Denies loss of vision and Denies weakness Psychiatric Denies anxiety, Denies confusion, Denies depression, Denies homicidal ideation and Denies suicidal ideation Endocrine Denies palpitations Hematologic/Lymphatic Denies easy bruising Allergic/Immunologic Denies wheezing PFSH Medical History HTN (hypertension) (Acute) Social History Smoking Status: Smoker, status unknown Social History household members: family Smoking Status: Never smoker alcohol intake: never Exam Narrative Exam Narrative: GENERAL: This is a well-nourished, well-developed patient, in mild distress. alert oriented x3, GCS 15, but confused about some situational components of her visit which is not her baseline HEAD: Atraumatic. Normocephalic. No temporal or scalp tenderness. EYES: Pupils equal round and reactive. Extraocular motions intact. No scleral icterus. No injection or drainage. ENT: Nose without bleeding, purulent drainage or septal hematoma. Throat without erythema, tonsillar hypertrophy or exudate. Uvula midline. Airway patent. NECK: Trachea midline. No JVD or lymphadenopathy. Supple, nontender, no meningeal signs. CARDIOVASCULAR: Regular rate and rhythm without murmurs, gallops, or rubs. RESPIRATORY: Clear to auscultation. Breath sounds equal bilaterally. No wheezes, rales, or rhonchi. GASTROINTESTINAL: Abdomen soft, non-tender, nondistended. No hepato-splenomegaly, or palpable masses. No guarding. RECTAL: mildly heme positive EXTREMITIES: No clubbing, cyanosis, or edema. No joint tenderness, effusion, or edema noted. BACK: Nontender without deformity or crepitance. No flank tenderness. NEURO: AOx3. SKIN: No rash or erythema. Initial Vital Signs Initial Vital Signs: Vital Signs Temperature 98.5 F 09/06/18 09:39 Pulse Rate 77 09/06/18 09:39 Respiratory Rate 14 09/06/18 09:39 Blood Pressure 125/58 L 09/06/18 09:39 Pulse Oximetry 99 09/06/18 09:39 Scores GCS [place] coma scale eye opening: Spontaneous [place] coma scale verbal response: Confused [place] coma scale motor response: Obey commands [place] coma scale total score: 14 Course Orders Ordered: ED Orders 09/06/18 10:00 Urinalysis and Microscopic Stat Urine Culture Stat 09/06/18 10:55 Basic Metabolic Panel Stat Complete Blood Count AUTO DIFF Stat Type and Screen Stat 09/06/18 12:21 EKG-12 Lead Routine 09/06/18 17:35 Hemoglobin and Hematocrit Stat Albuterol (Ventolin Hfa) 2 puff INH Q4H PRN PRN Reason: Shortness Of Breath Amlodipine Besylate (Norvasc) 7.5 mg PO DAILY [facility] Donepezil HCl (Aricept) 20 mg PO DAILY [facility] Sodium Chloride (Normal Saline 0.9%) 1,000 mls @ 50 mls/hr IV CONT SONIA Last Admin: 09/06/18 16:59 Dose: 50 mls/hr Lisinopril (Zestril) 20 mg PO BID [facility] Discontinued Medications Ceftriaxone Sodium/Dextrose (Rocephin) 1 gm in 50 mls @ 100 mls/hr IV NOW ONE Stop: 09/06/18 11:13 Last Infusion: 09/06/18 11:40 Dose: 0 mls/hr Admin: 09/06/18 10:58 Dose: 100 mls/hr Pantoprazole Sodium (Protonix) 40 mg IV NOW ONE Stop: 09/06/18 14:25 Last Admin: 09/06/18 16:59 Dose: 40 mg Consultations Consultation #1: call to Dr. Carlson to discuss GI bleed on pradaxa. He is happy to play a role in patient visit, but requests admission to hospitalist Dr. Lazo is happy to accept patient on her service Vital Signs - 8 hr 09/06/18 09:39 09/06/18 10:30 09/06/18 11:03 Temperature 98.5 F Pulse Rate 77 66 58 L Respiratory Rate 14 22 14 Blood Pressure 125/58 L Blood Pressure [Right Arm] 111/53 L 123/55 L Pulse Oximetry 99 100 09/06/18 11:30 09/06/18 12:00 09/06/18 13:00 Temperature Pulse Rate 67 64 68 Respiratory Rate 21 17 14 Blood Pressure Blood Pressure [Right Arm] 129/59 L 124/61 128/70 Pulse Oximetry 96 94 99 09/06/18 14:05 09/06/18 15:20 Temperature 98.9 F 98.9 F Pulse Rate 67 77 Respiratory Rate 15 18 Blood Pressure 126/69 136/70 Blood Pressure [Right Arm] Pulse Oximetry 97 93 MDM - Female Genitourinary Differential Diagnosis Likely urinary tract infection Lab Data Result diagrams: 09/06/18 10:55 09/06/18 10:55 Lab Results 09/06/18 09/06/18 09/06/18 Range/Units 10:00 10:55 10:55 WBC 8.4 (4.5-11.0) X10^3/uL RBC 4.04 (4.0-5.2) X10^6/uL Hgb 9.0 L (12.0-16.0) g/dL Hct 29.7 L (36-46) % MCV 73.5 L (80-100) fL MCH 22.4 L (26-34) PG MCHC 30.4 (30-36) % RDW 17.0 H (11.6-14.8) % Plt Count 376 (150-400) X10^3/uL Neut % (Auto) 66.3 (50-75) % Lymph % (Auto) 25.8 (25-40) % [place] % (Auto) 6.5 (3-14) % Eos % (Auto) 0.5 L (2-4) % Baso % (Auto) 0.9 (0-2) % Neut # (Auto) 5600 (6073-3311) /uL Lymph # (Auto) 2200 (2428-0278) /uL [place] # (Auto) 500 (0-900) /uL Eos # (Auto) 0 (0-450) /uL Baso # (Auto) 100 (0-100) /uL RBC Morphology See below Hypochromasia 1+ H Anisocytosis 1+ H Sodium 141 (137-145) mmol/L Potassium 3.3 L (3.4-5.1) mmol/L Chloride 102 (98-107) mmol/L Carbon Dioxide 32 (22-32) mmol/L BUN 15 (7-17) mg/dL Creatinine 0.70 (0.52-1.04) mg/dL Estimated GFR > 60.0 (>60) mL/min BUN/Creatinine Ratio 21.4 (6-22) Glucose 147 H (80-110) mg/dL Calcium 8.7 (8.4-10.2) mg/dL Urine Color Yellow Urine Appearance Cloudy Urine pH 7.0 (4.5-8.0) Ur Specific [place] 1.020 (1.000-1.035) Urine Protein Trace H (Negative) Urine Glucose (UA) Negative (Negative) g/dL Urine Ketones Trace H (NEGATIVE) Urine Occult Blood 3+ H (Negative) Urine Nitrate Negative (Negative) Urine Bilirubin Negative (NEGATIVE) Urine Urobilinogen 0.2 (0.2) E.U./dL Ur Leukocyte Esterase 3+ H (NEGATIVE) Urine RBC 30-100/hpf H (0-5/HPF) Urine WBC >100/hpf H (0-5/HPF) Ur Squamous Epith Cells 5-10 /hpf H (0-5/HPF) Urine Bacteria Many (>30) H (None) Ur Culture Indicated? Specimen cultured Blood Type Antibody Screen 09/06/18 Range/Units 10:55 WBC (4.5-11.0) X10^3/uL RBC (4.0-5.2) X10^6/uL Hgb (12.0-16.0) g/dL Hct (36-46) % MCV (80-100) fL MCH (26-34) PG MCHC (30-36) % RDW (11.6-14.8) % Plt Count (150-400) X10^3/uL Neut % (Auto) (50-75) % Lymph % (Auto) (25-40) % [place] % (Auto) (3-14) % Eos % (Auto) (2-4) % Baso % (Auto) (0-2) % Neut # (Auto) (8305-2125) /uL Lymph # (Auto) (2399-6689) /uL [place] # (Auto) (0-900) /uL Eos # (Auto) (0-450) /uL Baso # (Auto) (0-100) /uL RBC Morphology Hypochromasia Anisocytosis Sodium (137-145) mmol/L Potassium (3.4-5.1) mmol/L Chloride (98-107) mmol/L Carbon Dioxide (22-32) mmol/L BUN (7-17) mg/dL Creatinine (0.52-1.04) mg/dL Estimated GFR (>60) mL/min BUN/Creatinine Ratio (6-22) Glucose (80-110) mg/dL Calcium (8.4-10.2) mg/dL Urine Color Urine Appearance Urine pH (4.5-8.0) Ur Specific [place] (1.000-1.035) Urine Protein (Negative) Urine Glucose (UA) (Negative) g/dL Urine Ketones (NEGATIVE) Urine Occult Blood (Negative) Urine Nitrate (Negative) Urine Bilirubin (NEGATIVE) Urine Urobilinogen (0.2) E.U./dL Ur Leukocyte Esterase (NEGATIVE) Urine RBC (0-5/HPF) Urine WBC (0-5/HPF) Ur Squamous Epith Cells (0-5/HPF) Urine Bacteria (None) Ur Culture Indicated? Blood Type B Positive Antibody Screen Negative MDM Narrative Medical decision making narrative: Patient will require admission into the hospital given her metabolic encephalopathy with a slightly depressed GCS in the setting of a UTI and anemia while on Pradaxa Discharge Plan Departure Patient Disposition: Admitted As Inpatient Clinical Impression: Acute metabolic encephalopathy, Acute UTI, Acute lower gastrointestinal bleeding Discharge Date/Time: 09/06/18 13:53 Interventions: ED Discharge Assessment Last Done: 09/06/18 13:53 Admit Date/Time: 09/06/18 13:29 Admit Provider: Yvette Lazo
--- NOTE | 2018-09-06 10:08 | PC.NURSE ---
I walked patient to bathroom, she needs constant redirection, but does follow commands appropriately. Patient appears confused at times. I spoke with friend at bedside who reports that she is often confused and that her behavior today is normal for her. She reports she saw small amount of blood running down her leg yesterday and assumed it was form her urinary tract. She is incontinent normally and wears depends all the time. Denies vaginal or rectal bleeding. Today urine is cloudy however no obvious blood in urine can be visualized. She says no blood today. Had a bowel movement while in the bathroom and some blood was on tissue while wiping. She reports some constipation and that she tried to go yesterday but I couldn't. Friend reports, she does this often, thinks there's a problem but then there isn't. Who knows if there was actually blood yesterday. I relayed this information to Dr. Lobato.
[2018-09-06 10:24] LABS: Appearance Urine UA CLOUDY; Bilirubin Urine UA NEGATIVE (NEGATIVE); Color Urine UA YELLOW; Glucose Urine UA NEGATIVE (Negative); Ketones Urine UA TRACE (NEGATIVE); Leukocyte Esterase Urine UA 3+ (NEGATIVE); Nitrite Urine UA NEGATIVE (Negative); Occult Blood Urine UA 3+ (Negative); Protein Urine UA TRACE (Negative); Urobilinogen Urine UA 0.2 E.U./dL (0.2)
[2018-09-06 10:39] LABS: RBC Urine 30-100/HPF (0-5/HPF); WBC Urine >100/HPF (0-5/HPF)
[2018-09-06 10:42] LABS: Bacteria Urine Many (>30); Culture Indicated Urine Specimen Cultured; Squamous Epithelial Cell Urine 5-10 /HPF (0-5/HPF)
[2018-09-06] MEDS: CEFTRIAXONE 1 GM/50 ML FROZ.PIGGY IV ×2 (10:58→23:17)
[2018-09-06 11:05] LABS: Basophils Absolute Auto 100 /uL (0-100); Basophils Percent Auto 0.9 % (0-2); Eosinophils Absolute Auto 0 /uL (0-450); Eosinophils Percent Auto 0.5 % (2-4); Hematocrit 29.7 % (36-46); Lymphocytes Absolute Auto 2200 /uL (1100-4500); Lymphocytes Percent Auto 25.8 % (25-40); Mean Corpuscular HGB Conc 30.4 % (30-36); Mean Corpuscular Hemoglobin 22.4 PG (26-34); Mean Corpuscular Volume 73.5 fL (80-100); Monocytes Absolute Auto 500 /uL (0-900); Monocytes Percent Auto 6.5 % (3-14); Neutrophils Absolute Auto 5600 /uL (1500-7000); Neutrophils Percent Auto 66.3 % (50-75); Platelet Count 376 X10^3/uL (150-400); Red Blood Cell Count 4.04 X10^6/uL (4.0-5.2); White Blood Cell Count 8.4 X10^3/uL (4.5-11.0)
--- NOTE | 2018-09-06 11:12 | ED_ITS ---
HPI - Female Genitourinary General Chief complaint: Urogenital-Female Stated complaint: vaginal bleeding x2 days Time Seen by Provider: 09/06/18 09:30 Source: patient Mode of arrival: ambulatory Limitations: no limitations History of Present Illness HPI Narrative: 78-year-old nonsmoker with history of asthma presents with a friend and a chief complaint of some blood in the toilet after urinating and taking bowel movements. She is unclear if it is vaginal, in her urine or rectal. She otherwise feels a bit weak and run down and has some abnormal urinating. She takes Pradaxa for AFib. She denies any chest pain or shortness of breath. she denies any headaches, nausea or vomiting. she has had no fever or shaking chills. MD Complaint: dysuria and vaginal bleeding Onset (ago): day(s) Severity: mild Quality: Aching Duration: constant Relieving factors: none Exacerbating factors: none Urinary symptoms: Dysuria and Foul Smelling Urine Vaginal discharge: blood Patient : No Related Data Home Medications Medication Instructions Recorded Confirmed estradiol [Estring] 1 ea VAGINAL [id number] #0 03/22/11 09/06/18 albuterol sulfate [Ventolin HFA] 2 puff INHALATION Q4-6H PRN 05/30/18 09/06/18 baclofen 20 mg PO BEDTIME 05/30/18 09/06/18 beclomethasone dipropionate [Qvar 2 puff INHALATION DAILY 05/30/18 09/06/18 RediHaler] donepezil 20 mg PO DAILY 05/30/18 09/06/18 amlodipine 7.5 mg PO DAILY 09/06/18 09/06/18 dabigatran etexilate [Pradaxa] 150 mg PO BID 09/06/18 09/06/18 lisinopril 20 mg PO BID 09/06/18 09/06/18 metoprolol tartrate 12.5 mg PO BID 09/06/18 09/06/18 quetiapine 25 mg PO DAILY 09/06/18 09/06/18 trospium 60 mg PO DAILY 09/06/18 09/06/18 Allergies Allergy/AdvReac Type Severity Reaction Status Date / Time latex AdvReac Verified 09/06/18 09:39 Review of Systems Constitutional Denies chills, Denies fever(s), Denies lethargy and Denies weakness Eyes Denies change in vision, Denies eye discharge, Denies irritation and Denies loss of vision ENT Ears, Nose, Mouth, and Throat: Denies change in voice, Denies neck pain and Denies sore throat Cardiovascular Denies chest pain, Denies irregular heart rhythm, Denies lightheadedness, Denies palpitations, Denies dyspnea, Denies dyspnea on exertion and Denies orthopnea Respiratory Denies cough, Denies dyspnea, Denies dyspnea on exertion and Denies wheezing Gastrointestinal Gastrointestinal: Denies abdominal pain, Reports hematochezia, Denies change in bowel habits, Denies diarrhea, Denies nausea and Denies vomiting Genitourinary Reports abnormal vaginal bleeding, Denies hematuria, Reports dysuria, Denies flank pain, Denies urinary incontinence and Reports urinary urgency Musculoskeletal Denies neck pain Integumentary/Breasts Denies pruritus, Denies erythema, Denies rash and Denies wounds Neurologic Denies confusion, Denies loss of vision and Denies weakness Psychiatric Denies anxiety, Denies confusion, Denies depression, Denies homicidal ideation and Denies suicidal ideation Endocrine Denies palpitations Hematologic/Lymphatic Denies easy bruising Allergic/Immunologic Denies wheezing PFSH Medical History HTN (hypertension) (Acute) Social History Smoking Status: Smoker, status unknown Social History household members: family Smoking Status: Never smoker alcohol intake: never Exam Narrative Exam Narrative: GENERAL: This is a well-nourished, well-developed patient, in mild distress. alert oriented x3, GCS 15, but confused about some situational components of her visit which is not her baseline HEAD: Atraumatic. Normocephalic. No temporal or scalp tenderness. EYES: Pupils equal round and reactive. Extraocular motions intact. No scleral icterus. No injection or drainage. ENT: Nose without bleeding, purulent drainage or septal hematoma. Throat without erythema, tonsillar hypertrophy or exudate. Uvula midline. Airway patent. NECK: Trachea midline. No JVD or lymphadenopathy. Supple, nontender, no meningeal signs. CARDIOVASCULAR: Regular rate and rhythm without murmurs, gallops, or rubs. RESPIRATORY: Clear to auscultation. Breath sounds equal bilaterally. No wheezes, rales, or rhonchi. GASTROINTESTINAL: Abdomen soft, non-tender, nondistended. No hepato- splenomegaly, or palpable masses. No guarding. RECTAL: mildly heme positive EXTREMITIES: No clubbing, cyanosis, or edema. No joint tenderness, effusion, or edema noted. BACK: Nontender without deformity or crepitance. No flank tenderness. NEURO: AOx3. SKIN: No rash or erythema. Initial Vital Signs Initial Vital Signs: Vital Signs Temperature 98.5 F 09/06/18 09:39 Pulse Rate 77 09/06/18 09:39 Respiratory Rate 14 09/06/18 09:39 Blood Pressure 125/58 L 09/06/18 09:39 Pulse Oximetry 99 09/06/18 09:39 Scores GCS [place] coma scale eye opening: Spontaneous [place] coma scale verbal response: Confused [place] coma scale motor response: Obey commands [place] coma scale total score: 14 Course Orders Ordered: ED Orders 09/06/18 10:00 Urinalysis and Microscopic Stat Urine Culture Stat 09/06/18 10:55 Basic Metabolic Panel Stat Complete Blood Count AUTO DIFF Stat Type and Screen Stat 09/06/18 12:21 EKG-12 Lead Routine 09/06/18 17:35 Hemoglobin and Hematocrit Stat Albuterol (Ventolin Hfa) 2 puff INH Q4H PRN PRN Reason: Shortness Of Breath Amlodipine Besylate (Norvasc) 7.5 mg PO DAILY [facility] Donepezil HCl (Aricept) 20 mg PO DAILY [facility] Sodium Chloride (Normal Saline 0.9%) 1,000 mls @ 50 mls/hr IV CONT SONIA Last Admin: 09/06/18 16:59 Dose: 50 mls/hr Lisinopril (Zestril) 20 mg PO BID [facility] Discontinued Medications Ceftriaxone Sodium/Dextrose (Rocephin) 1 gm in 50 mls @ 100 mls/hr IV NOW ONE Stop: 09/06/18 11:13 Last Infusion: 09/06/18 11:40 Dose: 0 mls/hr Admin: 09/06/18 10:58 Dose: 100 mls/hr Pantoprazole Sodium (Protonix) 40 mg IV NOW ONE Stop: 09/06/18 14:25 Last Admin: 09/06/18 16:59 Dose: 40 mg Consultations Consultation #1: call to Dr. Carlson to discuss GI bleed on pradaxa. He is happy to play a role in patient visit, but requests admission to hospitalist Dr. Lazo is happy to accept patient on her service Vital Signs - 8 hr 09/06/18 09:39 09/06/18 10:30 09/06/18 11:03 Temperature 98.5 F Pulse Rate 77 66 58 L Respiratory Rate 14 22 14 Blood Pressure 125/58 L Blood Pressure [Right Arm] 111/53 L 123/55 L Pulse Oximetry 99 100 09/06/18 11:30 09/06/18 12:00 09/06/18 13:00 Temperature Pulse Rate 67 64 68 Respiratory Rate 21 17 14 Blood Pressure Blood Pressure [Right Arm] 129/59 L 124/61 128/70 Pulse Oximetry 96 94 99 09/06/18 14:05 09/06/18 15:20 Temperature 98.9 F 98.9 F Pulse Rate 67 77 Respiratory Rate 15 18 Blood Pressure 126/69 136/70 Blood Pressure [Right Arm] Pulse Oximetry 97 93 MDM - Female Genitourinary Differential Diagnosis Likely urinary tract infection Lab Data Result diagrams: 09/06/18 10:55 09/06/18 10:55 Lab Results 09/06/18 09/06/18 09/06/18 Range/Units 10:00 10:55 10:55 WBC 8.4 (4.5-11.0) X10^3/uL RBC 4.04 (4.0-5.2) X10^6/uL Hgb 9.0 L (12.0-16.0) g/dL Hct 29.7 L (36-46) % MCV 73.5 L (80-100) fL MCH 22.4 L (26-34) PG MCHC 30.4 (30-36) % RDW 17.0 H (11.6-14.8) % Plt Count 376 (150-400) X10^3/uL Neut % (Auto) 66.3 (50-75) % Lymph % (Auto) 25.8 (25-40) % [place] % (Auto) 6.5 (3-14) % Eos % (Auto) 0.5 L (2-4) % Baso % (Auto) 0.9 (0-2) % Neut # (Auto) 5600 (9551-2860) /uL Lymph # (Auto) 2200 (6560-6690) /uL [place] # (Auto) 500 (0-900) /uL Eos # (Auto) 0 (0-450) /uL Baso # (Auto) 100 (0-100) /uL RBC Morphology See below Hypochromasia 1+ H Anisocytosis 1+ H Sodium 141 (137-145) mmol/L Potassium 3.3 L (3.4-5.1) mmol/L Chloride 102 (98-107) mmol/L Carbon Dioxide 32 (22-32) mmol/L BUN 15 (7-17) mg/dL Creatinine 0.70 (0.52-1.04) mg/dL Estimated GFR > 60.0 (>60) mL/min BUN/Creatinine Ratio 21.4 (6-22) Glucose 147 H (80-110) mg/dL Calcium 8.7 (8.4-10.2) mg/dL Urine Color Yellow Urine Appearance Cloudy Urine pH 7.0 (4.5-8.0) Ur Specific [place] 1.020 (1.000-1.035) Urine Protein Trace H (Negative) Urine Glucose (UA) Negative (Negative) g/dL Urine Ketones Trace H (NEGATIVE) Urine Occult Blood 3+ H (Negative) Urine Nitrate Negative (Negative) Urine Bilirubin Negative (NEGATIVE) Urine Urobilinogen 0.2 (0.2) E.U./dL Ur Leukocyte Esterase 3+ H (NEGATIVE) Urine RBC 30-100/hpf H (0-5/HPF) Urine WBC >100/hpf H (0-5/HPF) Ur Squamous Epith Cells 5-10 /hpf H (0-5/HPF) Urine Bacteria Many (>30) H (None) Ur Culture Indicated? Specimen cultured Blood Type Antibody Screen 09/06/18 Range/Units 10:55 WBC (4.5-11.0) X10^3/uL RBC (4.0-5.2) X10^6/uL Hgb (12.0-16.0) g/dL Hct (36-46) % MCV (80-100) fL MCH (26-34) PG MCHC (30-36) % RDW (11.6-14.8) % Plt Count (150-400) X10^3/uL Neut % (Auto) (50-75) % Lymph % (Auto) (25-40) % [place] % (Auto) (3-14) % Eos % (Auto) (2-4) % Baso % (Auto) (0-2) % Neut # (Auto) (4304-7089) /uL Lymph # (Auto) (3729-2862) /uL [place] # (Auto) (0-900) /uL Eos # (Auto) (0-450) /uL Baso # (Auto) (0-100) /uL RBC Morphology Hypochromasia Anisocytosis Sodium (137-145) mmol/L Potassium (3.4-5.1) mmol/L Chloride (98-107) mmol/L Carbon Dioxide (22-32) mmol/L BUN (7-17) mg/dL Creatinine (0.52-1.04) mg/dL Estimated GFR (>60) mL/min BUN/Creatinine Ratio (6-22) Glucose (80-110) mg/dL Calcium (8.4-10.2) mg/dL Urine Color Urine Appearance Urine pH (4.5-8.0) Ur Specific [place] (1.000-1.035) Urine Protein (Negative) Urine Glucose (UA) (Negative) g/dL Urine Ketones (NEGATIVE) Urine Occult Blood (Negative) Urine Nitrate (Negative) Urine Bilirubin (NEGATIVE) Urine Urobilinogen (0.2) E.U./dL Ur Leukocyte Esterase (NEGATIVE) Urine RBC (0-5/HPF) Urine WBC (0-5/HPF) Ur Squamous Epith Cells (0-5/HPF) Urine Bacteria (None) Ur Culture Indicated? Blood Type B Positive Antibody Screen Negative MDM Narrative Medical decision making narrative: Patient will require admission into the hospital given her metabolic encephalopathy with a slightly depressed GCS in the setting of a UTI and anemia while on Pradaxa Discharge Plan Departure Patient Disposition: Admitted As Inpatient Clinical Impression: Acute metabolic encephalopathy, Acute UTI, Acute lower gastrointestinal bleeding Discharge Date/Time: 09/06/18 13:53 Interventions: ED Discharge Assessment Last Done: 09/06/18 13:53 Admit Date/Time: 09/06/18 13:29 Admit Provider: Yvette Lazo
[2018-09-06 11:17] LABS: BUN Creatinine Ratio 21.4 (6-22); Blood Urea Nitrogen 15 mg/dL (7-17); Calcium 8.7 mg/dL (8.4-10.2); Carbon Dioxide 32 mmol/L (22-32); Chloride 102 mmol/L (98-107); Estimated Glomerular Filt Rate > 60.0 mL/min (>60); Glucose 147 mg/dL (80-110); HEMOLYSIS < 15 (0-50); Potassium 3.3 mmol/L (3.4-5.1); Sodium 141 mmol/L (137-145)
[2018-09-06 11:19] LABS: Add Manual Diff / Slide Review SLIDE REVIEW
[2018-09-06 11:46] LABS: Anisocytosis 1+
[2018-09-06 11:47] LABS: Hypochromasia 1+
--- NOTE | 2018-09-06 12:19 | PC.NURSE ---
See Patient note for more details.
--- NOTE | 2018-09-06 14:35 | PC.NURSE ---
admission complete. pt denies pain. appropriate. VSS. pt stood and transfered self from stretcher to bed. denies dizziness.
[2018-09-06] MEDS: PANTOPRAZOLE 40 MG VIAL IV (16:59)
[2018-09-06] MEDS: SODIUM CHLORIDE 0.9% 1,000 ML 50 ML IV (16:59)
[2018-09-06 17:56] LABS: Hematocrit 27.4 % (36-46); Hemoglobin 8.2 g/dL (12.0-16.0)
[2018-09-06] MEDS: QUETIAPINE 25 MG TABLET 12.5 MG PO (21:04)
[2018-09-06] MEDS: METOPROLOL IR 25 MG TABLET 12.5 MG PO (21:04)
[2018-09-06] MEDS: LISINOPRIL 20 MG TABLET PO (21:04)
[2018-09-06 22:29] LABS: Hemoglobin 7.4 g/dL (12.0-16.0); Mean Corpuscular HGB Conc 30.4 % (30-36); Mean Corpuscular Hemoglobin 22.1 PG (26-34); Mean Corpuscular Volume 72.8 fL (80-100); Platelet Count 333 X10^3/uL (150-400); Red Blood Cell Count 3.35 X10^6/uL (4.0-5.2); Red Cell Distribution Width 16.7 % (11.6-14.8); White Blood Cell Count 7.9 X10^3/uL (4.5-11.0)
[2018-09-06 22:33] LABS: Hematocrit 24.4 % (36-46)
--- NOTE | 2018-09-06 22:42 | P.HP_ITS ---
History of Present Illness Date Patient Seen: 09/06/18 Time Patient Seen: 18:26 Chief complaint: vaginal bleeding x2 days Narrative: Karine Grant is a 78-year-old female patient with a history of atrial fibrillation on Pradaxa, hypertension and dementia who presents to the ER for perineal bleeding. Patient states she noticed bleeding yesterday after using the toilet when urinating and when passing stool. The patient was unsure whether it was vaginal bleeding or rectal bleeding. She reports no complaints of abdominal pain but has had associated weakness and fatigue. She has a jorge luis ewhat difficult historian but reports having no fevers or chills, headaches or dizziness. She has no complaints of chest pain but does experience palpitations with a history of atrial fibrillation. She does at the sometimes it is quite fast. She reports no shortness of breath or dyspnea on exertion stating she can ascend a flight of stairs without difficulty. She has had no cough or wheezing and is no longer using inhalers. She denies abdominal pain, nausea vomiting diarrhea or constipation. She has had complaints of burning, frequency and urgency and from reported history likely hematuria of 2 days duration. In the ER the patient is found to be afebrile a temperature of 98.5?, heart rate of 77, blood pressure 125/58, respiratory rate of 14 and 99% saturation on room air. A 12 lead EKG was completed in the ER which demonstrates sinus Gurpreet at rate of [address] or T-wave changes. Her CBC demonstrates a normal white count 8.4 with hemoglobin of 8.2 and hematocrit of 27.4 with platelets of 376. While in the ER on serial labs a drop in hemoglobin from 9.0-8.2 was noted. C oags are within normal limits with the APTT low at 23. Her chemistries notable for a low potassium at 3.3 and has a BUN of 15 and creatinine of 0.7. On urinalysis she is positive for ketones, trace protein, 3+ blood, 3+ leukocyte esterase and WBCs greater than 100. She is given Protonix 40 mg in the emergency department as well as Rocephin 1 g IV. The patient is admitted for lower GI bleeding urinary tract infection and metabolic encephalopathy. Patient History Medical History (Updated 09/06/18 @ 22:59 by BROOKE Mukherjee) Atrial fibrillation (Acute) Current use of assisted anticoagulation (Acute) Dementia (Acute) HTN (hypertension) (Acute) Surgical History Status post left foot surgery (Acute) Social History household members: family Smoking Status: Never smoker alcohol intake: never Family & Social History Family History Father No problems noted. Mother Medical history unknown Brother Cardiovascular disease Brother Lung disease Smoker Social History: household members family Prior Living Arrangements Apartment/Condo Safety & Behavioral: Feels Safe in Current Yes Environment Been Physically Hurt or No Threatened By a Person Suicidal Ideation Description None Tobacco & Substance use: Smoking Status Never smoker alcohol intake never alcohol intake frequency holiday/special occasion Substance Use Type does not use Comment: The [facility] where she has a caregiver coming for 1/2 day per week to help with various tasks as well as finances. She has been twice each time. Her most recent 4-5 years ago. Patient has difficulty recalling medical history. Smoking: Patient is denies smoking. Alcohol: Patient endorses drinking in the past, will consume alcohol on rare occasions. Substance use: Patient denies recreation pharmaceuticals, herbal or cannabis products. Advanced directive: And direct conversation with the patient covering the patient wishes FULL RESUSCITATION. She designates her niece [place] to be her surrogate decision maker. Meds Home Medications Medication Instructions Recorded Confirmed Type estradiol [Estring] 1 ea VAGINAL [id number] #0 03/22/11 09/06/18 History baclofen 20 mg PO BEDTIME 05/30/18 09/06/18 History donepezil 20 mg PO DAILY 05/30/18 09/06/18 History amlodipine 7.5 mg PO DAILY 09/06/18 09/06/18 History dabigatran etexilate [Pradaxa] 150 mg PO BID 09/06/18 09/06/18 History lisinopril 20 mg PO BID 09/06/18 09/06/18 History metoprolol tartrate 12.5 mg PO BID 09/06/18 09/06/18 History quetiapine 25 mg PO DAILY 09/06/18 09/06/18 History trospium 60 mg PO DAILY 09/06/18 09/06/18 History Allergies Allergy/AdvReac Type Severity Reaction Status Date / Time latex AdvReac Verified 09/06/18 09:39 Review of Systems Review of Systems All systems reviewed & are unremarkable except as noted in HPI and below Exam Vital Signs (past 8 hours): - 09/06/18 15:20 09/06/18 19:42 Temperature 98.9 F 99.0 F Pulse Rate 77 75 Respiratory Rate 18 18 Blood Pressure 136/70 148/73 H Pulse Oximetry 93 93 Oxygen Delivery Method Room Air Oxygen Flow Rate 0 Narrative Exam Narrative: GENERAL APPEARANCE: well developed, under nourished with a BMI of 16.6, afebrile and in no acute distress. HEAD: Normocephalic, atraumatic, no scalp lesions. EYES: pupils equal, round, reactive to light and accommodation, sclera non- icteric, extraocular movement intact. EARS: normal external structures, no ear pain NOSE: sinuses non tender to percussion, no rhinorrhea ORAL CAVITY: Dry mucous membranes, no oral lesions or exudate, palate normal, tongue in midline. THROAT: normal, no erythema, no exudate, pharynx normal, uvula midline. NECK/THYROID: neck supple, no jugular venous distention, no carotid bruit, no thyromegaly, trachea midline. LYMPH NODES: no cervical or supraclavicular lymphadenopathy. SKIN: warm and dry, no suspicious lesions, no rashes, good turgor. HEART: regular rate and rhythm, S1-S2 1/6 systolic murmur loudest over right upper sternal border, no rubs or gallops, brisk capillary refill, no edema LUNGS: clear to auscultation bilaterally, no coarseness crackles or wheezing, no cough present CHEST: Symmetrical movement, no accessory muscle use, no pain to AP and lateral compression. ABDOMEN: Soft, no distention, no epigastric or abdominal tenderness on palpation, no guarding or peritoneal signs, no organomegaly, no flank or suprapubic tenderness, active bowel tones. BACK: Normal curvature, nontender to palpation, no CVA tenderness on percussion EXTREMITIES: moves all extremities, strength is 5/5 and symmetrical, well perfused. NEUROLOGIC: AAO to person and place confused as to time, impaired memory and recall, cranial nerves II-XII grossly intact , motor strength normal upper and lower extremities, sensory exam intact to light touch, hearing grossly normal to speech. PSYCH: alert, cooperative, cognitive function intact, good eye contact, stable mood with congruent affect Objective Labs Result Diagrams: 09/06/18 22:17 09/06/18 10:55 Labs: Laboratory Results - last 24 hr 09/06/18 09/06/18 09/06/18 10:00 10:55 10:55 WBC 8.4 RBC 4.04 Hgb 9.0 L Hct 29.7 L MCV 73.5 L MCH 22.4 L MCHC 30.4 RDW 17.0 H Plt Count 376 Neut % (Auto) 66.3 Lymph % (Auto) 25.8 [place] % (Auto) 6.5 Eos % (Auto) 0.5 L Baso % (Auto) 0.9 Neut # (Auto) 5600 Lymph # (Auto) 2200 [place] # (Auto) 500 Eos # (Auto) 0 Baso # (Auto) 100 RBC Morphology See below Hypochromasia 1+ H Anisocytosis 1+ H Sodium 141 Potassium 3.3 L Chloride 102 Carbon Dioxide 32 BUN 15 Creatinine 0.70 Estimated GFR > 60.0 BUN/Creatinine Ratio 21.4 Glucose 147 H Calcium 8.7 Urine Color Yellow Urine Appearance Cloudy Urine pH 7.0 Ur Specific [place] 1.020 Urine Protein Trace H Urine Glucose (UA) Negative Urine Ketones Trace H Urine Occult Blood 3+ H Urine Nitrate Negative Urine Bilirubin Negative Urine Urobilinogen 0.2 Ur Leukocyte Esterase 3+ H Urine RBC 30-100/hpf H Urine WBC >100/hpf H Ur Squamous Epith Cells 5-10 /hpf H Urine Bacteria Many (>30) H Ur Culture Indicated? Specimen cultured Blood Type Antibody Screen 09/06/18 09/06/18 09/06/18 10:55 17:47 22:17 WBC 7.9 RBC 3.35 L Hgb 8.2 L 7.4 L Hct 27.4 L 24.4 L MCV 72.8 L MCH 22.1 L MCHC 30.4 RDW 16.7 H Plt Count 333 Neut % (Auto) Lymph % (Auto) [place] % (Auto) Eos % (Auto) Baso % (Auto) Neut # (Auto) Lymph # (Auto) [place] # (Auto) Eos # (Auto) Baso # (Auto) RBC Morphology Hypochromasia Anisocytosis Sodium Potassium Chloride Carbon Dioxide BUN Creatinine Estimated GFR BUN/Creatinine Ratio Glucose Calcium Urine Color Urine Appearance Urine pH Ur Specific [place] Urine Protein Urine Glucose (UA) Urine Ketones Urine Occult Blood Urine Nitrate Urine Bilirubin Urine Urobilinogen Ur Leukocyte Esterase Urine RBC Urine WBC Ur Squamous Epith Cells Urine Bacteria Ur Culture Indicated? Blood Type B Positive Antibody Screen Negative Assessment & Plan Assessment & Plan narrative: Ms. Grant is a 78-year-old female patient admitted for treatment of an acute GI bleed, acute UTI with metabolic encephalopathy. 1. Lower GI bleed, present on admission, acute -patient reports a history of 2 days of bleeding noticing blood in the toilet af ter urination and stooling, associated weakness and fatigue -patient has been on Pradaxa for atrial fibrillation which is held. Patient is not in acute distress therefore will not use reversal agent at this time. -examination in the emergency department identifies rectal bleeding, positive guaiac with a drop of 0.8 g hemoglobin over 7 hours. -the patient is typed and screened, will obtain serial H&H and transfuse as indicated. -Dr. Carlson, general surgery, thank you for your consult -clear liquid diet pending General surgery evaluation. 2. Urinary tract infection, present on admission, acute -patient reports 2 days of hematuria, burning urgency and frequency -patient reports increased fatigue and demonstrates impaired cognition and memory recall and following directions -patient received Rocephin 1 g in the ER will continue Rocephin 1 g every 12 hours -patient appears dehydrated will provide normal saline 50 cc/hour 3. Hypokalemia, present on admission, acute -on admission lab testing the patient has a potassium level of 3.3. -patient will receive 20 mEq K rider. 4. Atrial fibrillation, not present on admission, chronic -patient reports no chest pain or shortness of breath, does endorse feeling palpitations -12 lead EKG obtained in the ER reviewed by myself finds sinus bradycardia with P are interval of 161 milliseconds, QRS 86 milliseconds and QTC of [address] or T-wave changes indicative of ischemia. -will continue home medication of metoprolol 12.5 mg twice daily. -patient has been on Pradaxa which is on hold pending resolution of GI bleeding. 5. Hypertension, chronic, active -will continue patient's home medications of amlodipine 7.5 mg and lisinopril 20 mg twice daily 6. Dementia, present on admission, chronic -patient has been under the care of neurology, will continue donepezil 20 mg daily -patient recently started on quetiapine 25 mg however this reportedly makes the patient feel drowsy, will continue quetiapine 12.5 mg at bedtime. The patient is admitted to the hospital related to the severity of her symptoms and the need for close monitoring and intervention. The patient is admitted as an inpatient with expected length of stay to be greater than 2 midnights. Quality VTE Deep Vein Thrombosis/Pulmonary Embolism Present on Admission: No
[2018-09-07] VITALS (21 sets, daily range): BP systolic 129–183; BP diastolic 54–89; PULSE 54–95; RESP 14–19; TEMP 36.4–37.5; O2SAT 95–99; BMI 15.7
[2018-09-07] MEDS: POTASSIUM CHLORIDE 20 MEQ in SODIUM CHLORIDE 0.9% 250 ML 130 ML IV (00:15)
--- NOTE | 2018-09-07 01:38 | PC.NURSE ---
Addendum entered by Brijesh Kelly R.N. 09/07/18 03:17: 0310: Transfusion of first unit PRBCs started. Original Note: Type Cutter Note: 0015: Pt awake, alert, oriented X3. Vital signs stable. IV in place in lt forearm, with NS infusing at 50cc/hr. Pt informed of orders for blood transfusion: consent obtained from patient, and her neice by phone. K-rider infusing.
[2018-09-07] MEDS: PANTOPRAZOLE 20 MG TABLET PO (06:39)
[2018-09-07] MEDS: LISINOPRIL 20 MG TABLET PO ×2 (08:16→22:24)
[2018-09-07] MEDS: METOPROLOL IR 25 MG TABLET 12.5 MG PO ×2 (08:17→22:25)
[2018-09-07] MEDS: AMLODIPINE 5 MG TABLET 7.5 MG PO (08:17)
[2018-09-07] MEDS: DONEPEZIL 5 MG TABLET 20 MG PO (08:19)
--- NOTE | 2018-09-07 09:23 | PM.CN ---
History of Present Illness Date Patient Seen: 09/07/18 Time Patient Seen: 09:23 Chief complaint: vaginal bleeding x2 days Reason for consult: Rectal bleeding Narrative: 78-year-old white female patient is noted red rectal bleeding for the last 2 days. This is painless. She denies any abdominal pain. patient is on Pradaxa. She has had a previous colonoscopy some years ago and may have had some polyps but she is not certain. [facility] Medical History Atrial fibrillation (Acute) Current use of alf anticoagulation (Acute) Dementia (Acute) HTN (hypertension) (Acute) Surgical History Status post left foot surgery (Acute) Family History Father No problems noted. Mother Medical history unknown Brother Cardiovascular disease Brother Lung disease Smoker Social History household members: family Smoking Status: Never smoker alcohol intake: never Family History Father No problems noted. Mother Medical history unknown Brother Cardiovascular disease Brother Lung disease Smoker Social History household members: family Smoking Status: Never smoker alcohol intake: never Meds Home Medications Medication Instructions Recorded Confirmed Type estradiol [Estring] 1 ea VAGINAL [id number] #0 03/22/11 09/06/18 History baclofen 20 mg PO BEDTIME 05/30/18 09/06/18 History donepezil 20 mg PO DAILY 05/30/18 09/06/18 History amlodipine 7.5 mg PO DAILY 09/06/18 09/06/18 History dabigatran etexilate [Pradaxa] 150 mg PO BID 09/06/18 09/06/18 History lisinopril 20 mg PO BID 09/06/18 09/06/18 History metoprolol tartrate 12.5 mg PO BID 09/06/18 09/06/18 History quetiapine 25 mg PO DAILY 09/06/18 09/06/18 History trospium 60 mg PO DAILY 09/06/18 09/06/18 History Allergies Allergy/AdvReac Type Severity Reaction Status Date / Time latex AdvReac Verified 09/06/18 09:39 Exam Vital Signs (past 8 hours): - 09/07/18 02:51 09/07/18 02:54 09/07/18 03:10 Temperature 98.6 F 98.6 F 98.1 F Pulse Rate 62 62 71 Respiratory Rate 18 18 17 Blood Pressure 139/67 139/67 139/68 Pulse Oximetry 96 09/07/18 05:31 09/07/18 05:39 09/07/18 06:29 Temperature 98.5 F 98.5 F 98.5 F Pulse Rate 59 L 59 L 59 L Respiratory Rate 18 18 18 Blood Pressure 148/73 H 143/73 H 148/73 H Pulse Oximetry 95 09/07/18 07:00 09/07/18 07:02 09/07/18 08:08 Temperature 98.5 F 98.5 F 99.0 F Pulse Rate 61 61 76 Respiratory Rate 18 18 16 Blood Pressure 139/71 139/71 183/89 H Pulse Oximetry 96 95 09/07/18 08:16 Temperature Pulse Rate 74 Respiratory Rate Blood Pressure 183/89 H Pulse Oximetry Oxygen Delivery Method Room Air Oxygen Flow Rate 0 Narrative Exam Narrative: Patient is alert and oriented with stable vital signs. heart rate in the 70s. Abdominal exam reveals no organomegaly no masses no absolutely no tenderness. Rectal exam in the emergency room revealed no tumor but there is red blood noted. Objective Labs Result Diagrams: 09/06/18 22:17 09/06/18 10:55 Labs: Laboratory Results - last 24 hr 09/06/18 09/06/18 09/06/18 10:00 10:55 10:55 WBC 8.4 RBC 4.04 Hgb 9.0 L Hct 29.7 L MCV 73.5 L MCH 22.4 L MCHC 30.4 RDW 17.0 H Plt Count 376 Neut % (Auto) 66.3 Lymph % (Auto) 25.8 [place] % (Auto) 6.5 Eos % (Auto) 0.5 L Baso % (Auto) 0.9 Neut # (Auto) 5600 Lymph # (Auto) 2200 [place] # (Auto) 500 Eos # (Auto) 0 Baso # (Auto) 100 RBC Morphology See below Hypochromasia 1+ H Anisocytosis 1+ H Sodium 141 Potassium 3.3 L Chloride 102 Carbon Dioxide 32 BUN 15 Creatinine 0.70 Estimated GFR > 60.0 BUN/Creatinine Ratio 21.4 Glucose 147 H Calcium 8.7 Urine Color Yellow Urine Appearance Cloudy Urine pH 7.0 Ur Specific [place] 1.020 Urine Protein Trace H Urine Glucose (UA) Negative Urine Ketones Trace H Urine Occult Blood 3+ H Urine Nitrate Negative Urine Bilirubin Negative Urine Urobilinogen 0.2 Ur Leukocyte Esterase 3+ H Urine RBC 30-100/hpf H Urine WBC >100/hpf H Ur Squamous Epith Cells 5-10 /hpf H Urine Bacteria Many (>30) H Ur Culture Indicated? Specimen cultured Blood Type Antibody Screen Crossmatch 09/06/18 09/06/18 09/06/18 10:55 17:47 22:17 WBC 7.9 RBC 3.35 L Hgb 8.2 L 7.4 L Hct 27.4 L 24.4 L MCV 72.8 L MCH 22.1 L MCHC 30.4 RDW 16.7 H Plt Count 333 Neut % (Auto) Lymph % (Auto) [place] % (Auto) Eos % (Auto) Baso % (Auto) Neut # (Auto) Lymph # (Auto) [place] # (Auto) Eos # (Auto) Baso # (Auto) RBC Morphology Hypochromasia Anisocytosis Sodium Potassium Chloride Carbon Dioxide BUN Creatinine Estimated GFR BUN/Creatinine Ratio Glucose Calcium Urine Color Urine Appearance Urine pH Ur Specific [place] Urine Protein Urine Glucose (UA) Urine Ketones Urine Occult Blood Urine Nitrate Urine Bilirubin Urine Urobilinogen Ur Leukocyte Esterase Urine RBC Urine WBC Ur Squamous Epith Cells Urine Bacteria Ur Culture Indicated? Blood Type B Positive Antibody Screen Negative Crossmatch See Detail Assessment & Plan Assessment & Plan narrative: Patient is on anticoagulant therapy really anti-platelet therapy and has developed red rectal bleeding. she has stable hemodynamics. She is receiving her 2nd unit of packed cells. Hemoglobin 7.4 prior to the transfusion. Patient has been on Pradaxa and should have a colonoscopy in several days after the drug effect has dissipated. I have discussed this with the hospitalist who is in agreement. Patient understands and agrees as well.
--- NOTE | 2018-09-07 09:28 | P.CONS_ITS ---
History of Present Illness Date Patient Seen: 09/07/18 Time Patient Seen: 09:23 Chief complaint: vaginal bleeding x2 days Reason for consult: Rectal bleeding Narrative: 78-year-old white female patient is noted red rectal bleeding for the last 2 days. This is painless. She denies any abdominal pain. patient is on Pradaxa. She has had a previous colonoscopy some years ago and may have had some polyps but she is not certain. [facility] Medical History Atrial fibrillation (Acute) Current use of usp anticoagulation (Acute) Dementia (Acute) HTN (hypertension) (Acute) Surgical History Status post left foot surgery (Acute) Family History Father No problems noted. Mother Medical history unknown Brother Cardiovascular disease Brother Lung disease Smoker Social History household members: family Smoking Status: Never smoker alcohol intake: never Family History Father No problems noted. Mother Medical history unknown Brother Cardiovascular disease Brother Lung disease Smoker Social History household members: family Smoking Status: Never smoker alcohol intake: never Meds Home Medications Medication Instructions Recorded Confirmed Type estradiol [Estring] 1 ea VAGINAL [id number] #0 03/22/11 09/06/18 History baclofen 20 mg PO BEDTIME 05/30/18 09/06/18 History donepezil 20 mg PO DAILY 05/30/18 09/06/18 History amlodipine 7.5 mg PO DAILY 09/06/18 09/06/18 History dabigatran etexilate [Pradaxa] 150 mg PO BID 09/06/18 09/06/18 History lisinopril 20 mg PO BID 09/06/18 09/06/18 History metoprolol tartrate 12.5 mg PO BID 09/06/18 09/06/18 History quetiapine 25 mg PO DAILY 09/06/18 09/06/18 History trospium 60 mg PO DAILY 09/06/18 09/06/18 History Allergies Allergy/AdvReac Type Severity Reaction Status Date / Time latex AdvReac Verified 09/06/18 09:39 Exam Vital Signs (past 8 hours): - 09/07/18 02:51 09/07/18 02:54 09/07/18 03:10 Temperature 98.6 F 98.6 F 98.1 F Pulse Rate 62 62 71 Respiratory Rate 18 18 17 Blood Pressure 139/67 139/67 139/68 Pulse Oximetry 96 09/07/18 05:31 09/07/18 05:39 09/07/18 06:29 Temperature 98.5 F 98.5 F 98.5 F Pulse Rate 59 L 59 L 59 L Respiratory Rate 18 18 18 Blood Pressure 148/73 H 143/73 H 148/73 H Pulse Oximetry 95 09/07/18 07:00 09/07/18 07:02 09/07/18 08:08 Temperature 98.5 F 98.5 F 99.0 F Pulse Rate 61 61 76 Respiratory Rate 18 18 16 Blood Pressure 139/71 139/71 183/89 H Pulse Oximetry 96 95 09/07/18 08:16 Temperature Pulse Rate 74 Respiratory Rate Blood Pressure 183/89 H Pulse Oximetry Oxygen Delivery Method Room Air Oxygen Flow Rate 0 Narrative Exam Narrative: Patient is alert and oriented with stable vital signs. heart rate in the 70s. Abdominal exam reveals no organomegaly no masses no absolutely no tenderness. Rectal exam in the emergency room revealed no tumor but there is red blood noted. Objective Labs Result Diagrams: 09/06/18 22:17 09/06/18 10:55 Labs: Laboratory Results - last 24 hr 09/06/18 09/06/18 09/06/18 10:00 10:55 10:55 WBC 8.4 RBC 4.04 Hgb 9.0 L Hct 29.7 L MCV 73.5 L MCH 22.4 L MCHC 30.4 RDW 17.0 H Plt Count 376 Neut % (Auto) 66.3 Lymph % (Auto) 25.8 [place] % (Auto) 6.5 Eos % (Auto) 0.5 L Baso % (Auto) 0.9 Neut # (Auto) 5600 Lymph # (Auto) 2200 [place] # (Auto) 500 Eos # (Auto) 0 Baso # (Auto) 100 RBC Morphology See below Hypochromasia 1+ H Anisocytosis 1+ H Sodium 141 Potassium 3.3 L Chloride 102 Carbon Dioxide 32 BUN 15 Creatinine 0.70 Estimated GFR > 60.0 BUN/Creatinine Ratio 21.4 Glucose 147 H Calcium 8.7 Urine Color Yellow Urine Appearance Cloudy Urine pH 7.0 Ur Specific [place] 1.020 Urine Protein Trace H Urine Glucose (UA) Negative Urine Ketones Trace H Urine Occult Blood 3+ H Urine Nitrate Negative Urine Bilirubin Negative Urine Urobilinogen 0.2 Ur Leukocyte Esterase 3+ H Urine RBC 30-100/hpf H Urine WBC >100/hpf H Ur Squamous Epith Cells 5-10 /hpf H Urine Bacteria Many (>30) H Ur Culture Indicated? Specimen cultured Blood Type Antibody Screen Crossmatch 09/06/18 09/06/18 09/06/18 10:55 17:47 22:17 WBC 7.9 RBC 3.35 L Hgb 8.2 L 7.4 L Hct 27.4 L 24.4 L MCV 72.8 L MCH 22.1 L MCHC 30.4 RDW 16.7 H Plt Count 333 Neut % (Auto) Lymph % (Auto) [place] % (Auto) Eos % (Auto) Baso % (Auto) Neut # (Auto) Lymph # (Auto) [place] # (Auto) Eos # (Auto) Baso # (Auto) RBC Morphology Hypochromasia Anisocytosis Sodium Potassium Chloride Carbon Dioxide BUN Creatinine Estimated GFR BUN/Creatinine Ratio Glucose Calcium Urine Color Urine Appearance Urine pH Ur Specific [place] Urine Protein Urine Glucose (UA) Urine Ketones Urine Occult Blood Urine Nitrate Urine Bilirubin Urine Urobilinogen Ur Leukocyte Esterase Urine RBC Urine WBC Ur Squamous Epith Cells Urine Bacteria Ur Culture Indicated? Blood Type B Positive Antibody Screen Negative Crossmatch See Detail Assessment & Plan Assessment & Plan narrative: Patient is on anticoagulant therapy really anti- platelet therapy and has developed red rectal bleeding. she has stable hemodynamics. She is receiving her 2nd unit of packed cells. Hemoglobin 7.4 prior to the transfusion. Patient has been on Pradaxa and should have a colonoscopy in several days after the drug effect has dissipated. I have discussed this with the hospitalist who is in agreement. Patient understands and agrees as well.
[2018-09-07 11:09] LABS: Add Manual Diff / Slide Review NO; Basophils Absolute Auto 100 /uL (0-100); Basophils Percent Auto 0.9 % (0-2); Eosinophils Absolute Auto 100 /uL (0-450); Eosinophils Percent Auto 1.5 % (2-4); Hemoglobin 11.5 g/dL (12.0-16.0); Lymphocytes Absolute Auto 2500 /uL (1100-4500); Lymphocytes Percent Auto 32.6 % (25-40); Mean Corpuscular HGB Conc 31.1 % (30-36); Mean Corpuscular Hemoglobin 24.2 PG (26-34); Monocytes Absolute Auto 700 /uL (0-900); Monocytes Percent Auto 9.9 % (3-14); Neutrophils Absolute Auto 4100 /uL (1500-7000); Neutrophils Percent Auto 55.1 % (50-75); Platelet Count 309 X10^3/uL (150-400); Red Blood Cell Count 4.74 X10^6/uL (4.0-5.2); Red Cell Distribution Width 18.9 % (11.6-14.8); White Blood Cell Count 7.5 X10^3/uL (4.5-11.0)
[2018-09-07] MEDS: CEFTRIAXONE 1 GM/50 ML FROZ.PIGGY IV ×2 (11:15→23:56)
[2018-09-07 11:22] LABS: BUN Creatinine Ratio 14.3 (6-22); Blood Urea Nitrogen 10 mg/dL (7-17); Calcium 8.4 mg/dL (8.4-10.2); Carbon Dioxide 32 mmol/L (22-32); Chloride 105 mmol/L (98-107); Estimated Glomerular Filt Rate > 60.0 mL/min (>60); Glucose 97 mg/dL (80-110); HEMOLYSIS < 15 (0-50); Potassium 3.6 mmol/L (3.4-5.1); Sodium 141 mmol/L (137-145)
--- NOTE | 2018-09-07 13:58 | PT.IIE ---
Current Diagnoses Hemorrhage of anus and rectum (09/06/18) Surgery Performed Operation Date: 09/08/18 09:15 <No data on this case meets the specified criteria> Surgical History (Last Reviewed 09/07/18 @ 09:24 by Jason Carlson MD) Status post left foot surgery (Acute) Medical History (Last Reviewed 09/07/18 @ 09:24 by Jason Carlson MD) Atrial fibrillation (Acute) Current use of fdc anticoagulation (Acute) Dementia (Acute) HTN (hypertension) (Acute) Physical Therapy Inpatient Evaluation/Re-Eval M1 PT/OT-IP Prior Functional Status Start: 09/07/18 15:02 Freq: NEEDED Status: Active Protocol: Document 09/07/18 13:58 AB (Rec: 09/07/18 15:20 AB [email or web address]) Medical Review Prior Functional Status Medical History Reviewed Yes Communication able to make needs known Mobility and Gait pt stated that she is independent with all mobilities and ambulation without AD Social History Living Arrangements House Number of Floors (Floors) Two Floors Number of Stairs To Enter/Railing? 2 steps to [place] with bilateral rails 15 steps with bilateral rails to 2nd floor bedroom Home Environment Standard Height Toilet Tub/Shower Home Equipment Grab Bars In Shower Additional Social History Comment stated that her friend comes in on wednesdays to clean her house and drives her for groceries. M2 PT-IP Current Condition Start: 09/07/18 15:02 Freq: NEEDED Status: Active Protocol: Document 09/07/18 13:58 AB (Rec: 09/07/18 15:20 AB [email or web address]) Physical Therapy Current Condition Current Condition Evaluation Date 09/07/18 Treatment Diagnosis UTI; difficulties in walking Onset Date 09/06/18 Precautions Other Precautions falls M3 PT-IP Subjective Start: 09/07/18 15:02 Freq: NEEDED Status: Active Protocol: Document 09/07/18 13:58 AB (Rec: 09/07/18 15:20 AB [email or web address]) Subjective Physical Therapy Visit Type Type Initial Evaluation Visit Start Time 13:58 Visit Stop Time 14:40 Total Visit Minutes 42 Number of SHIELD OPERATOR Visits 0 Physical Therapy Visit Comments Patient Comments pt agreeable to do PT M4 PT-IP Mobility and Gait Start: 09/07/18 15:02 Freq: NEEDED Status: Active Protocol: Document 09/07/18 13:58 AB (Rec: 09/07/18 15:20 AB [email or web address]) PT-Bed Mobility Assessment Supine to Sit Supine to Sit Independent Sit to Supine Sit to Supine Independent Scooting Scooting to Edge of Bed Independent PT-Transfer Assessment Sit to and From Stand Sit to and from Stand Contact Guard Assistance Equipment Transfer Assistive Device None Gait Belt Orthotic/Prosthetic Devices or Brace: No Transfers Transfer Destination Chair Transfer Technique pt ambulated without AD Transfer Ability Level of Assist Contact Guard Assistance Gait Assessment Gait Gait Assistance Required: Contact Guard Assist Distance (Feet) 75 Able to Maintain Weight Bearing Status Yes During Gait Assistive Devices Assistive Device None Gait Belt Gait Deviations General Gait Pattern Ataxic Factors Limiting Gait Function Factors Limiting Gait Function Decreased Activity Tolerance Decreased Strength Poor Balance Poor Safety Awareness Comments Gait Comments pt is impulsive. presents with unsteady gait with LOB towards the L and results in RLE crossing over the right. pt unable to walk a straight path. LLE seems shorter that RLE affecting balance and gait . educated pt on how to correct gait and to slow down. gait training walking on a straight path conducted and pt completed CGA with cues. Stair Climbing Assessment Evaluation Level of Assist On Stairs Contact Guard Assistance Devices Stair Climbing Assistive Devices Left Railing Right Railing Technique/Endurance Stair Climbing Direction Ascend and Descend Number of Steps Climbed 3 Query Text: Stair Climbing Set # Repetitions (reps) 2 PT-Balance Assessment Sitting Balance and Reactions Static Sitting Balance Ability Good Dynamic Sitting Balance Ability Good Standing Balance and Reactions Static Standing Balance Ability Fair Dynamic Standing Balance Ability Fair Device Used without AD M5 PT-IP Objective Assessments Start: 09/07/18 15:02 Freq: NEEDED Status: Active Protocol: Document 09/07/18 13:58 AB (Rec: 09/07/18 15:20 AB [email or web address]) Orientation Orientation/Cognition Level of Alertness Alert Orientation Name Place Situation Safety Awareness Decreased Safety Awareness Gross Range of Motion Lower Extremity ROM Assessment Within Functional Limits Strength Lower Extremity Strength Assessment Within Functional Limits Sensation Assessment Sensation Gross Sensation WNL Muscle Tone Muscle Tone WNL Yes M6 PT-IP Treatment Start: 09/07/18 15:02 Freq: NEEDED Status: Active Protocol: Document 09/07/18 13:58 AB (Rec: 09/07/18 15:20 AB [email or web address]) Physical Therapy Treatment Education Education Provided Safety M7 PT-IP Assessment and Plan Start: 09/07/18 15:02 Freq: NEEDED Status: Active Protocol: Document 09/07/18 13:58 AB (Rec: 09/07/18 15:20 AB [email or web address]) PT Summary Assessment and Plan Potential Rehabilitation Potential Good Status of Condition at Evaluation Stable Summary Impairments Pain ROM Strength Balance Coordination Bed Mobility Transfers Gait Activity Tolerance Assessment Summary pt requiring CGA with ambulation and plans to go home with her sister to assist her. pt with decrease standing balance and unsteady gait and will benefit from outpt PT to improve balance and ambulation. Goals Transfer Goal Independent Gait Goal Independent Gait Distance 200 Other Goals up/down 15 steps bilateral rails SBA Days to Meet Goals 5 Frequency of Treatment Frequency Of Treatment Once a Day Treatment Plan Physical Therapy Treatment Plan Bed Mobility Training Transfer Training Gait Training Therapeutic Exercise Balance Retraining Discharge Planning Neuromuscular Re-ed Coordination Retraining Manual Therapy Other Recommendations and Next Treatment standing balance, ambulation , Focus stair training Recommendations To Nursing Amount of Assist Needed 1 Person Assist Discharge Recommendations PT Discharge Recommendations Home with Assistance Outpatient PT
--- NOTE | 2018-09-07 16:37 | PM.PN.1 ---
Subjective Date Patient Seen: 09/07/18 Interval history: Karine Grant is a 78-year-old female patient with a history of atrial fibrillation on Pradaxa, hypertension and dementia who presents to the ER for bright red blood per rectum. Patient is resting in bed comfortably. She has not had any recurrent bright red blood per rectum or hematochezia. Pradaxa is being held. The patient reports she has had a colonoscopy in the past but cannot remember how many, when, or what they found. She has had significant weight loss (unclear over what amount of time due to patient's memory impairment) and has a BMI of 15.8. She reports she is unable to keep weight. She also reports is hard for her to have a bowel movement in takes 3 hours or longer most times. She reports she sits on the toilet as she feels as though she is going to have a bowel movement but does not. When she has a bowel movement she reports it is string like. Consulted dietitian. She endorses fatigue otherwise she has no complaints and denies headache, chest pain, shortness of breath, abdominal pain, nausea, vomiting, fever, chills, dysuria, diarrhea or constipation. Exam Vital Signs (past 8 hours): - 09/07/18 10:30 09/07/18 11:13 09/07/18 15:49 Temperature 99.4 F 99.5 F Pulse Rate 85 54 L 57 L Respiratory Rate 18 14 18 Blood Pressure 131/54 L 139/70 Pulse Oximetry 95 97 98 09/07/18 16:08 Temperature Pulse Rate Respiratory Rate Blood Pressure Pulse Oximetry 97 Fraction of Inspired Oxygen 21 Oxygen Delivery Method Room Air Oxygen Flow Rate 0 Narrative Exam Narrative: General: Elderly cachectic and emaciated female lying in bed and in no acute distress, appears older than stated age and chronically ill, significant memory impairment and reported early onset dementia but appropriately interactive. HEENT: Normocephalic, atraumatic. External ears without defect. Pupils equal, round, and reactive to light. Anicteric sclerae, moist conjunctivae, and no lid lag. Oropharynx free of erythema and cobble stoning with moist mucosa. Temporal wasting and vast muscle atrophy of entire body. Large star shaped scar on forehead. Neck: Supple with full range of motion. No jugular venous distension. No lymphadenopathy or thyromegaly. Cardiovascular: Regular rate and rhythm without murmurs, rubs, or gallops appreciated. Pulmonary: Clear to auscultation bilaterally without crackles, wheezes, or rhonchi. Normal respiratory effort with no use of accessory muscles. Abdomen: Soft, bowel sounds present, non-tender, non-distended. No hepatosplenomegaly or masses appreciated. Extremities: No clubbing, cyanosis, or edema. Skin: Normal temperature, turgor, and texture; no rash, ulcers, or subcutaneous nodules appreciated. Neurological: Cranial nerves grossly intact. Psychiatric: Normal mood and affect. Alert and oriented to person, place, and time. Objective Labs Result Diagrams: 09/07/18 11:00 09/07/18 11:00 Labs: Laboratory Results - last 24 hr 09/06/18 09/06/18 09/06/18 10:55 17:47 22:17 WBC 7.9 RBC 3.35 L Hgb 8.2 L 7.4 L Hct 27.4 L 24.4 L MCV 72.8 L MCH 22.1 L MCHC 30.4 RDW 16.7 H Plt Count 333 Neut % (Auto) Lymph % (Auto) [place] % (Auto) Eos % (Auto) Baso % (Auto) Neut # (Auto) Lymph # (Auto) [place] # (Auto) Eos # (Auto) Baso # (Auto) Sodium Potassium Chloride Carbon Dioxide BUN Creatinine Estimated GFR BUN/Creatinine Ratio Glucose Calcium Blood Type B Positive Antibody Screen Negative Crossmatch See Detail 09/07/18 09/07/18 11:00 11:00 WBC 7.5 RBC 4.74 Hgb 11.5 L Hct 37.0 MCV 78.0 L D MCH 24.2 L MCHC 31.1 RDW 18.9 H Plt Count 309 Neut % (Auto) 55.1 Lymph % (Auto) 32.6 [place] % (Auto) 9.9 Eos % (Auto) 1.5 L Baso % (Auto) 0.9 Neut # (Auto) 4100 Lymph # (Auto) 2500 [place]ell # (Auto) 700 Eos # (Auto) 100 Baso # (Auto) 100 Sodium 141 Potassium 3.6 Chloride 105 Carbon Dioxide 32 BUN 10 Creatinine 0.70 Estimated GFR > 60.0 BUN/Creatinine Ratio 14.3 Glucose 97 Calcium 8.4 Blood Type Antibody Screen Crossmatch Assessment & Plan Assessment & Plan narrative: Karine Grant is a 78-year-old female patient with a history of atrial fibrillation on Pradaxa, hypertension and dementia who presents to the ER for bright red blood per rectum. 1. Acute lower GI bleed, present on admission. Active. -The patient reports a 2 day history of rectal bleeding with associated weakness and fatigue. -Due to patient's history of weight loss, encoparesis, and bowel movement pattern high probability of GI malignancy. -She is on Pradaxa for atrial fibrillation which is held. Patient is not hemodynamically unstable and exsanguinating, therefore, did not use Praxbind. -The patient had bright red blood per rectum on ED examination. Guaiac positive. -Hemoglobin trending down from 9.0 on admission to 7.4 this morning. Will transfuse 2 units PRBC. -Dr. Carlson, from general surgery has been consulted and plans to perform colonoscopy tomorrow morning for evaluation without biopsies due to anticoagulation on board. Start bowel prep this evening. NPO otherwise. 2. Urinary tract infection, present on admission, acute -The patient has also had dysuria, urgency and frequency. -Received ceftriaxone 1 g x 1 in ED. Continue ceftriaxone 1 g twice daily. -Appears dehydrated will provide normal saline 50 cc/hour. 3. Acute hypokalemia, present on admission. Resolved. -Initial potassium level 3.3. Received potassium chloride 20 mEq x1. -Continue to monitor closely and replete as needed. 4. Paroxysmal atrial fibrillation, chronic, present on admission. Stable. -Currently in normal sinus rhythm/bradycardia. -Continue home metoprolol 12.5 mg twice daily. -Held Pradaxa pending resolution of GI bleeding. 5. Hypertension, chronic, present on admission. Stable. -Continue home medications of amlodipine 7.5 mg and lisinopril 20 mg twice daily unless clinically unstable. 6. Dementia, chronic, present on admission. Stable. -Patient under the care of neurology. -Continue donepezil 20 mg daily. -Recently started on quetiapine 25 mg, however, this reportedly makes the patient feel drowsy. Continue quetiapine 12.5 mg at bedtime only. Disposition: Patient likely to discharge in several days once source of GI bleed has been identified and addressed. Quality VTE Deep Vein Thrombosis/Pulmonary Embolism Present on Admission: No
[2018-09-07] MEDS: PEG3350/SOD SULF,BICARB,CL/KCL 4,000 ML SOLUTION 3000 ML PO (17:27)
[2018-09-07 18:09] LABS: Magnesium 1.8 mg/dL (1.6-2.3)
[2018-09-07 21:15] LABS: Hematocrit 38.1 % (36-46)
[2018-09-07] MEDS: QUETIAPINE 25 MG TABLET 12.5 MG PO (22:26)
[2018-09-08] VITALS (15 sets, daily range): BP systolic 96–170; BP diastolic 51–84; PULSE 51–77; RESP 8–18; TEMP 36.6–37.6; O2SAT 94–99; BMI 16.0
--- NOTE | 2018-09-08 | DI.CT.S_ITS ---
PROCEDURE: CT ABDOMEN PELVIS W CON INDICATIONS: GI bleeding TECHNIQUE: After the administration of oral and intravenous contrast, 5 mm thick sections acquired from the diaphragms to the symphysis. 5 mm thick coronal and sagittal reformats were performed. For radiation dose reduction, the following was used: automated exposure control, adjustment of mA and/or kV according to patient size. COMPARISON: [facility], MR, MR THORACIC SPINE WO/W CON, 10/21/2017, 11:52. CT, ANG CHEST/ABD W/WO CONTRAST (PNL), 02/05/2014, 14:37. FINDINGS: Image quality: Excellent. ABDOMEN: Lung bases: There is minimal dependent atelectasis. Heart size is normal. Solid organs: There is a small oval cyst within the right hepatic lobe measuring up to 0.9 cm in segment 6. Posteriorly along the right hepatic dome in segment 7, there is a wedge-shaped hypodensity measuring up to 1.1 cm which is incompletely characterized. There is an internal linear high density focus suggestive of a small vessel traversing the lesion. There are gallstones in the gallbladder without associated collateral thickening or pericholecystic fluid. Biliary system is non-dilated. Pancreas enhances normally. Spleen is normal in size and enhancement. No adrenal nodules. There is mild left hydronephrosis extending to the ureteropelvic junction. The left ureter is completely normal in caliber. No obstruction stone visualized. There is a right extrarenal pelvis without definite hydronephrosis. Peritoneum and bowel: Stomach and small bowel loops are normal in caliber and wall thickness. No evidence of appendicitis. There is diverticulosis of the sigmoid colon. Mild segmental wall thickening is also demonstrated in the sigmoid colon suggestive of a mild colitis. No definite inflammatory changes associated with the diverticula to suggest acute diverticulitis. There is a small amount of intraperitoneal free fluid in the pelvis. No free air. Nodes and vessels: No retroperitoneal or mesenteric adenopathy. Aorta and inferior vena cava are normal in caliber. Miscellaneous: No ventral hernias. PELVIS: Genitourinary: Bladder wall thickness is normal. A pessary ring is noted. Miscellaneous: No inguinal hernias or adenopathy. Bones: No suspicious bony lesions. No vertebral body compression fractures. IMPRESSION: 1. Small segmental wall thickening in the sigmoid colon compatible with a mild colitis, likely infectious or inflammatory in etiology although the differential includes ischemic colitis. 2. Colonic diverticulosis without definite acute diverticulitis. 3. Mild left hydronephrosis with a transition at the urinary junction suggestive of a UPJ obstruction. No obstructing stone visualized. 4. Small amount of free fluid in the pelvis is nonspecific but likely reactive. 5. Small indeterminate peripheral hypodense lesion in the posterior hepatic dome is similar to minimally increased in size compared to the prior study although this may be due to differences in phase of imaging. The finding is nonspecific but likely nonaggressive and the differential includes a hemangioma, focal fatty change, sequela of prior trauma, or sequela of prior infarct. Dictated by: Nish Delgado M.D. on 09/08/2018 at 13:12 Approved by: Nish Delgado M.D. on 09/08/2018 at 13:23
--- NOTE | 2018-09-08 03:11 | PC.NURSE ---
Pt finished a total of 3000ml of GoLytely by 09/07 @ [id number]. Pt now NPO.
[2018-09-08 06:50] LABS: Add Manual Diff / Slide Review NO; Basophils Absolute Auto 100 /uL (0-100); Basophils Percent Auto 1.1 % (0-2); Eosinophils Absolute Auto 400 /uL (0-450); Eosinophils Percent Auto 5.4 % (2-4); Hematocrit 38.5 % (36-46); Hemoglobin 12.2 g/dL (12.0-16.0); Lymphocytes Absolute Auto 3200 /uL (1100-4500); Lymphocytes Percent Auto 48.1 % (25-40); Mean Corpuscular HGB Conc 31.7 % (30-36); Mean Corpuscular Hemoglobin 24.3 PG (26-34); Mean Corpuscular Volume 76.8 fL (80-100); Monocytes Absolute Auto 700 /uL (0-900); Monocytes Percent Auto 10.8 % (3-14); Neutrophils Absolute Auto 2300 /uL (1500-7000); Neutrophils Percent Auto 34.6 % (50-75); Platelet Count 305 X10^3/uL (150-400); Red Blood Cell Count 5.01 X10^6/uL (4.0-5.2); Red Cell Distribution Width 19.1 % (11.6-14.8); White Blood Cell Count 6.6 X10^3/uL (4.5-11.0)
[2018-09-08 07:03] LABS: Alanine Aminotransferase 22 IU/L (9-52); Albumin 3.5 g/dL (3.5-5.0); Albumin Globulin Ratio 1.3 (1.0-2.8); Alkaline Phosphatase 55 U/L (38-126); Aspartate Aminotransferase 23 IU/L (14-36); BUN Creatinine Ratio 8.3 (6-22); Bilirubin Total 0.3 mg/dL (0.2-1.3); Blood Urea Nitrogen 5 mg/dL (7-17); Calcium 8.8 mg/dL (8.4-10.2); Carbon Dioxide 32 mmol/L (22-32); Chloride 104 mmol/L (98-107); Estimated Glomerular Filt Rate > 60.0 mL/min (>60); Globulin 2.6 g/dL (1.7-4.1); Glucose 83 mg/dL (80-110); HEMOLYSIS < 15 (0-50); Magnesium 1.8 mg/dL (1.6-2.3); Potassium 3.6 mmol/L (3.4-5.1); Sodium 142 mmol/L (137-145); Total Protein 6.1 g/dL (6.3-8.2)
[2018-09-08] MEDS: LACTATED RINGERS 1,000 ML 42 ML IV (07:51)
--- NOTE | 2018-09-08 09:32 | PM.OP.ENDO ---
Operative Date/Time/Diagnoses Date of procedure: 09/08/18 Time of procedure: 09:32 Post-op diagnosis: same Procedure & Clinicians Study performed: Colonoscopy to the cecum Same procedure as scheduled: Yes Indications: Patient admitted with anemia suspected to be blood loss anemia and hematochezia Surgeon: Jason Carlson Procedure Notes SCOAP/Timeout: Done Procedure in detail: Patient was given conscious sedation with propofol by the anesthesiologist. This was because of her comorbidities and hemodynamic instability on admission with profound anemia and rectal bleeding. that is why and anesthesiologist was present for this case. patient was properly identified during surgical pause flexible fiberoptic colonoscope inserted transanally to the cecum there is absolutely no blood encountered anywhere in the colon. Patient has mild to moderate sigmoid diverticulosis without bleeding or diverticulitis. No tumors no polyps no ulcerations were seen. No evidence of ischemic colitis. Patient has mild to moderate hemorrhoidal disease which could have done some bleeding in the recent past but is not bleeding today. Procedures very well tolerated. Scope withdrawal time: 7 Sedation minutes: 20 Findings: diverticulosis Specimen(s): none sent Complications: none Impression: No etiology was discovered to cause anemia or hematochezia other than minimal diverticulosis and minimal hemorrhoidal disease. Follow up: as needed Disposition: PACU
[2018-09-08] MEDS: AMLODIPINE 5 MG TABLET 7.5 MG PO (10:27)
[2018-09-08] MEDS: LISINOPRIL 20 MG TABLET PO (10:28)
[2018-09-08] MEDS: METOPROLOL IR 25 MG TABLET 12.5 MG PO (10:28)
[2018-09-08] MEDS: DONEPEZIL 5 MG TABLET 20 MG PO (10:28)
[2018-09-08] MEDS: CEFTRIAXONE 1 GM/50 ML FROZ.PIGGY IV (10:29)
[2018-09-08] MEDS: PANTOPRAZOLE 20 MG TABLET PO (10:29)
--- NOTE | 2018-09-08 11:31 | CM.DANOTE ---
Discharge Planning/Care Management DCP: assessment: case received, EMR reviewed, discussed POC with Dr. Lama and met with pt and her sister Chanelle. Introduced self and role. Pt is a 78 year old female who admitted afternoon of 09/06 to care of hospitalist team. Discussed case in Team Rounds yesterday with Dr. Lazo. Payer: [facility] PCP: Lukasz Ignram/Micah Tarrs dre At that time Dr. Lazo planned to consult General Surgeon team and expected pt to be here for a few days. Decision made to see pt today when more was know (and per caseload need triage). Pt lives alone in a condo in [place]. She is in process of giving DPOA to her niece Kayleen who lives in [place] and works as a nurse supervisor case loading at a large hospital in [employer]. Her sister Chanelle is here visiting and will be staying with her for a few days, not because she needs it but because I want to. Pt confirms she is functionally independent without AD at home. 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 Dr. Lama has discussed his plan to order a CT and then, pending those results, pt may d/c to home later today. P: follow up prn after CT for any d/c needs that may arise. Pt is hopeful that she will be able to go home today. CM Discharge Assessment Start: 09/08/18 11:29 Freq: Status: Active Protocol: Document 09/08/18 11:30 ITV (Rec: 09/08/18 11:31 ITV [email or web address]) Discharge Planning Assessment Advance Directives? No History Provided By Patient Family Member Medical Record Prior Living Arrangements Apartment/Condo Whiteboard Updated in Patient Room with Yes name and ext. # of Dermatology Technician Review Status In Process Next Review Type Continued Stay Review
--- NOTE | 2018-09-08 13:37 | PT.IPTN ---
Current Diagnoses Hemorrhage of anus and rectum (09/06/18) Surgery Performed Operation Date: 09/08/18 09:15 Actual Procedures p Colonoscopy - Jason Carlson MD Physical Therapy Treatment Note M2 PT-IP Current Condition Start: 09/07/18 15:02 Freq: NEEDED Status: Active Protocol: Document 09/07/18 13:58 AB (Rec: 09/07/18 15:20 AB [email or web address]) Physical Therapy Current Condition Current Condition Evaluation Date 09/07/18 Treatment Diagnosis UTI; difficulties in walking Onset Date 09/06/18 Precautions Other Precautions falls M3 PT-IP Subjective Start: 09/07/18 15:02 Freq: NEEDED Status: Active Protocol: Document 09/08/18 13:15 GGD (Rec: 09/08/18 13:37 GGD [id number]) Subjective Physical Therapy Visit Type Type Treatment Note Visit Start Time 13:00 Visit Stop Time 13:15 Total Visit Minutes 15 Number of AUTO RADIO MECHANIC Visits 1 Physical Therapy Visit Comments Patient Comments Pt willing to walk. M4 PT-IP Mobility and Gait Start: 09/07/18 15:02 Freq: NEEDED Status: Active Protocol: Document 09/08/18 13:15 GGD (Rec: 09/08/18 13:37 GGD [id number]) PT-Transfer Assessment Sit to and From Stand Sit to and from Stand Contact Guard Assistance Equipment Transfer Assistive Device None Gait Belt Orthotic/Prosthetic Devices or Brace: No Transfers Transfer Destination Chair Transfer Ability Level of Assist Contact Guard Assistance Gait Assessment Gait Gait Assistance Required: Contact Guard Assist Distance (Feet) 100 Able to Maintain Weight Bearing Status Yes During Gait Assistive Devices Assistive Device None Gait Belt Gait Deviations General Gait Pattern Ataxic Factors Limiting Gait Function Factors Limiting Gait Function Decreased Activity Tolerance Decreased Strength Poor Balance Poor Safety Awareness Stair Climbing Assessment Evaluation Level of Assist On Stairs Contact Guard Assistance Devices Stair Climbing Assistive Devices Left Railing Right Railing Technique/Endurance Stair Climbing Direction Ascend and Descend Number of Steps Climbed 3 Query Text: Stair Climbing Set # Repetitions (reps) 2 Comments Stair Climbing Comments one stair mobility with B rail , then one set with one rail. M5 PT-IP Objective Assessments Start: 09/07/18 15:02 Freq: NEEDED Status: Active Protocol: Document 09/07/18 13:58 AB (Rec: 09/07/18 15:20 AB [email or web address]) Orientation Orientation/Cognition Level of Alertness Alert Orientation Name Place Situation Safety Awareness Decreased Safety Awareness Gross Range of Motion Lower Extremity ROM Assessment Within Functional Limits Strength Lower Extremity Strength Assessment Within Functional Limits Sensation Assessment Sensation Gross Sensation WNL Muscle Tone Muscle Tone WNL Yes M6 PT-IP Treatment Start: 09/07/18 15:02 Freq: NEEDED Status: Active Protocol: Document 09/07/18 13:58 AB (Rec: 09/07/18 15:20 AB [email or web address]) Physical Therapy Treatment Education Education Provided Safety M7 PT-IP Assessment and Plan Start: 09/07/18 15:02 Freq: NEEDED Status: Active Protocol: Document 09/08/18 13:15 GGD (Rec: 09/08/18 13:37 GGD [id number]) PT Summary Assessment and Plan Summary Assessment Summary Pt is CGA with mobility. She was safe and stable with stair mobility. She is mild unsteady with gait and is impulsive. Pt would benefit from outpt PT to improve balance and gait. Frequency of Treatment Frequency Of Treatment Once a Day Treatment Plan Physical Therapy Treatment Plan Bed Mobility Training Transfer Training Gait Training Therapeutic Exercise Balance Retraining Discharge Planning Neuromuscular Re-ed Coordination Retraining Manual Therapy Other Recommendations and Next Treatment standing balance, ambulation , Focus stair training Recommendations To Nursing Amount of Assist Needed 1 Person Assist Discharge Recommendations PT Discharge Recommendations Home with Assistance Outpatient PT
--- NOTE | 2018-09-08 13:37 | PM.DS.1 ---
History of Present Illness Date Patient Seen: 09/08/18 Time Patient Seen: 13:37 Chief complaint: vaginal bleeding x2 days Narrative: Karine Grant is a 78-year-old female patient with a history of atrial fibrillation on Pradaxa, hypertension and dementia who presents to the ER for perineal bleeding. Patient states she noticed bleeding yesterday after using the toilet when urinating and when passing stool. The patient was unsure whether it was vaginal bleeding or rectal bleeding. She reports no complaints of abdominal pain but has had associated weakness and fatigue. She has a somewhat difficult historian but reports having no fevers or chills, headaches or dizziness. She has no complaints of chest pain but does experience palpitations with a history of atrial fibrillation. She does at the sometimes it is quite fast. She reports no shortness of breath or dyspnea on exertion stating she can ascend a flight of stairs without difficulty. She has had no cough or wheezing and is no longer using inhalers. She denies abdominal pain, nausea vomiting diarrhea or constipation. She has had complaints of burning, frequency and urgency and from reported history likely hematuria of 2 days duration. In the ER the patient is found to be afebrile a temperature of 98.5?, heart rate of 77, blood pressure 125/58, respiratory rate of 14 and 99% saturation on room air. A 12 lead EKG was completed in the ER which demonstrates sinus Gurpreet at rate of [address] or T-wave changes. Her CBC demonstrates a normal white count 8.4 with hemoglobin of 8.2 and hematocrit of 27.4 with platelets of 376. While in the ER on serial labs a drop in hemoglobin from 9.0-8.2 was noted. Coags are within normal limits with the APTT low at 23. Her chemistries notable for a low potassium at 3.3 and has a BUN of 15 and creatinine of 0.7. On urinalysis she is positive for ketones, trace protein, 3+ blood, 3+ leukocyte esterase and WBCs greater than 100. She is given Protonix 40 mg in the emergency department as well as Rocephin 1 g IV. The patient is admitted for lower GI bleeding urinary tract infection and metabolic encephalopathy. Discharge Providers Date of admission: 09/06/18 13:29 Discharge Date: 09/08/18 Primary care physician: Lukasz Ingram Consults: 09/06/18 20:46 Consult to Physician Routine Comment: Consulting Provider: Jason Carlson Reason for consultation: lower GIB Has provider been notified: Yes 09/07/18 00:45 Consult to Dietitian, Adult Routine Comment: Reason For Exam: Poor appatite, BMI 16.6 09/07/18 13:33 Consult to Dietitian, Adult Routine Comment: Reason For Exam: weight loss - difficulty chewing Consult to Occupational Therapy Evaluate & Treat Comment: Physician Instructions: Evaluate and treat Consult to Physical Therapy Evaluate & Treat Comment: Physician Instructions: Evaluate and Treat 09/07/18 14:22 Consult to Dietitian, Adult Routine Comment: Reason For Exam: weight loss 09/07/18 16:44 Consult to Dietitian, Adult Routine Comment: Reason For Exam: cachexia, probable colon cancer, BMI 15.8 Discharge provider: Rk Lama MD Summary Discharge Diagnosis: 1. Acute lower GI bleed, apparently related to diverticulosis and/or bleeding hemorrhoid 2. Urinary tract infection, present on admission, acute 3. Acute hypokalemia, present on admission. Resolved. 4. Paroxysmal atrial fibrillation, chronic, present on admission. Stable. 5. Hypertension, chronic, present on admission. Stable. 6. Dementia, chronic, present on admission. Stable. Hospital Course: 1. Acute lower GI bleed, present on admission. Active. -The patient reported a 2 day history of rectal bleeding with associated weakness and fatigue. -She is on Pradaxa for atrial fibrillation which was held and will now be cautiously resumed. Patient was not hemodynamically unstable and exsanguinating, therefore, did not use Praxbind. -The patient had bright red blood per rectum on ED examination. Guaiac positive. -Hemoglobin trending down from 9.0 on admission to 7.4 then given 2 units of packed red blood cells with hemoglobin back up to 12.2 today. Operative Date/Time/Diagnoses Date of procedure: Study performed: Colonoscopy to the cecum Same procedure as scheduled: Yes Indications: Patient admitted with anemia suspected to be blood loss anemia and hematochezia Surgeon: Jason Carlson Procedure in detail: Patient was given conscious sedation with propofol by the anesthesiologist. This was because of her comorbidities and hemodynamic instability on admission with profound anemia and rectal bleeding. that is why and anesthesiologist was present for this case. patient was properly identified during surgical pause flexible fiberoptic colonoscope inserted transanally to the cecum there is absolutely no blood encountered anywhere in the colon. Patient has mild to moderate sigmoid diverticulosis without bleeding or diverticulitis. No tumors no polyps no ulcerations were seen. No evidence of ischemic colitis. Patient has mild to moderate hemorrhoidal disease which could have done some bleeding in the recent past but is not bleeding today. Procedures very well tolerated. Scope withdrawal time: 7 Impression: No etiology was discovered to cause anemia or hematochezia other than minimal diverticulosis and minimal hemorrhoidal disease. Follow up: as needed 2. Urinary tract infection, present on admission, acute -treated with ceftriaxone, now with cultures growing Enterococcus, E coli, Serratia. Will be discharged on Cipro plus amoxicillin. Five days. 3. Acute hypokalemia, present on admission. Resolved. -Initial potassium level 3.3. Received potassium chloride 20 mEq x1. 4. Paroxysmal atrial fibrillation, chronic, present on admission. Stable. -heart rate controlled. Pradaxa held. Metoprolol continued. Will cautiously resume Pradaxa now. 5. Hypertension, chronic, present on admission. Stable. -Continue home medications of amlodipine 7.5 mg and lisinopril 20 mg twice daily 6. Dementia, chronic, present on admission. Stable. -Patient under the care of neurology. -Continue donepezil 20 mg daily. -Recently started on quetiapine 25 mg, however, this reportedly makes the patient feel drowsy. Continue quetiapine 12.5 mg at bedtime only. I agree with the dietitians assessment that she does have severe acute illness protein calorie malnutrition. Anemia is due to acute blood loss Total time today 42 minutes. Exam Vital Signs (past 8 hours): - 09/08/18 07:10 09/08/18 07:24 09/08/18 09:34 Temperature 98.2 F 98.3 F Pulse Rate 56 L 57 L Respiratory Rate 15 12 Blood Pressure 170/77 H 100/54 L Pulse Oximetry 98 98 95 09/08/18 09:39 09/08/18 09:44 09/08/18 09:49 Temperature Pulse Rate 51 L 56 L 52 L Respiratory Rate 12 8 L 12 Blood Pressure 96/51 L 105/63 128/67 Pulse Oximetry 95 98 94 09/08/18 10:15 09/08/18 10:28 09/08/18 10:51 Temperature 98.6 F 99.2 F Pulse Rate 60 58 L Respiratory Rate 16 16 Blood Pressure 151/81 H 151/81 H 164/79 H Pulse Oximetry 97 98 09/08/18 11:12 09/08/18 11:15 09/08/18 12:15 Temperature 99.6 F 99.5 F Pulse Rate 63 60 Respiratory Rate 16 18 Blood Pressure 170/72 H 155/71 H Pulse Oximetry 98 97 98 09/08/18 13:18 Temperature 99.0 F Pulse Rate 70 Respiratory Rate 18 Blood Pressure 133/73 Pulse Oximetry 99 Fraction of Inspired Oxygen 21 Oxygen Delivery Method Room Air Oxygen Flow Rate 0 Narrative Exam Narrative: She is alert and oriented x3 with only mild glimpse is of dementia. Heart is regular rate and rhythm without murmur. Lungs are clear to auscultation bilaterally. Abdomen is soft, bowel sounds positive, nontender, no organomegaly. Extremities no ankle edema. Objective Imaging CT scan - abdomen: Radiologist's impression: PROCEDURE: CT ABDOMEN PELVIS W CON INDICATIONS: GI bleeding TECHNIQUE: After the administration of oral and intravenous contrast, 5 mm thick sections acquired from the diaphragms to the symphysis. 5 mm thick coronal and sagittal reformats were performed. For radiation dose reduction, the following was used: automated exposure control, adjustment of mA and/or kV according to patient size. COMPARISON: [facility], , MR THORACIC SPINE WO/W CON, 10/21/2017, 11:52. CT, ANG CHEST/ABD W/WO CONTRAST (PNL), 02/05/2014, 14:37. FINDINGS: Image quality: Excellent. ABDOMEN: Lung bases: There is minimal dependent atelectasis. Heart size is normal. Solid organs: There is a small oval cyst within the right hepatic lobe measuring up to 0.9 cm in segment 6. Posteriorly along the right hepatic dome in segment 7, there is a wedge-shaped hypodensity measuring up to 1.1 cm which is incompletely characterized. There is an internal linear high density focus suggestive of a small vessel traversing the lesion. There are gallstones in the gallbladder without associated collateral thickening or pericholecystic fluid. Biliary system is non-dilated. Pancreas enhances normally. Spleen is normal in size and enhancement. No adrenal nodules. There is mild left hydronephrosis extending to the ureteropelvic junction. The left ureter is completely normal in caliber. No obstruction stone visualized. There is a right extrarenal pelvis without definite hydronephrosis. Peritoneum and bowel: Stomach and small bowel loops are normal in caliber and wall thickness. No evidence of appendicitis. There is diverticulosis of the sigmoid colon. Mild segmental wall thickening is also demonstrated in the sigmoid colon suggestive of a mild colitis. No definite inflammatory changes associated with the diverticula to suggest acute diverticulitis. There is a small amount of intraperitoneal free fluid in the pelvis. No free air. Nodes and vessels: No retroperitoneal or mesenteric adenopathy. Aorta and inferior vena cava are normal in caliber. Miscellaneous: No ventral hernias. PELVIS: Genitourinary: Bladder wall thickness is normal. A pessary ring is noted. Miscellaneous: No inguinal hernias or adenopathy. Bones: No suspicious bony lesions. No vertebral body compression fractures. IMPRESSION: 1. Small segmental wall thickening in the sigmoid colon compatible with a mild colitis, likely infectious or inflammatory in etiology although the differential includes ischemic colitis. 2. Colonic diverticulosis without definite acute diverticulitis. 3. Mild left hydronephrosis with a transition at the urinary junction suggestive of a UPJ obstruction. No obstructing stone visualized. 4. Small amount of free fluid in the pelvis is nonspecific but likely reactive. 5. Small indeterminate peripheral hypodense lesion in the posterior hepatic dome is similar to minimally increased in size compared to the prior study although this may be due to differences in phase of imaging. The finding is nonspecific but likely nonaggressive and the differential includes a hemangioma, focal fatty change, sequela of prior trauma, or sequela of prior infarct. Dictated by: Nish Delgado M.D. on 09/08/2018 at 13:12 Labs Result Diagrams: 09/08/18 06:22 09/08/18 06:22 Labs: Laboratory Results - last 24 hr 09/07/18 09/07/18 09/07/18 11:00 11:00 21:00 WBC RBC Hgb 12.0 Hct 38.1 MCV MCH MCHC RDW Plt Count Neut % (Auto) Lymph % (Auto) [place] % (Auto) Eos % (Auto) Baso % (Auto) Neut # (Auto) Lymph # (Auto) [place] # (Auto) Eos # (Auto) Baso # (Auto) Sodium 141 Potassium 3.6 Chloride 105 Carbon Dioxide 32 BUN 10 Creatinine 0.70 Estimated GFR > 60.0 BUN/Creatinine Ratio 14.3 Glucose 97 Calcium 8.4 Magnesium 1.8 Total Bilirubin AST ALT Alkaline Phosphatase Total Protein Albumin Globulin Albumin/Globulin Ratio 09/08/18 09/08/18 06:22 06:22 WBC 6.6 RBC 5.01 Hgb 12.2 Hct 38.5 MCV 76.8 L MCH 24.3 L MCHC 31.7 RDW 19.1 H Plt Count 305 Neut % (Auto) 34.6 L D Lymph % (Auto) 48.1 H [place] % (Auto) 10.8 Eos % (Auto) 5.4 H Baso % (Auto) 1.1 Neut # (Auto) 2300 Lymph # (Auto) 3200 [place] # (Auto) 700 Eos # (Auto) 400 Baso # (Auto) 100 Sodium 142 Potassium 3.6 Chloride 104 Carbon Dioxide 32 BUN 5 L Creatinine 0.60 Estimated GFR > 60.0 BUN/Creatinine Ratio 8.3 Glucose 83 Calcium 8.8 Magnesium 1.8 Total Bilirubin 0.3 AST 23 ALT 22 Alkaline Phosphatase 55 Total Protein 6.1 L Albumin 3.5 Globulin 2.6 Albumin/Globulin Ratio 1.3 Discharge Plan Discharge Plan Patient Disposition: Home Discharge comment: Follow up with Dr. Terrence Ingram at [facility] in [place] this next week. Discharge Med Rec/Prescriptions Prescriptions: New ciprofloxacin HCl [Cipro] 500 mg tablet 500 mg PO BID Qty: 10 RF: 0 amoxicillin 500 mg tablet 500 mg PO TID Qty: 15 RF: 0 Continued Estring 2 mg (7.5 mcg /24 hour) Ring 1 ea Vaginal [id number] Qty: 0 RF: 0 donepezil 10 mg tablet 20 mg PO DAILY RF: 0 baclofen 10 mg tablet 20 mg PO BEDTIME RF: 0 quetiapine 25 mg Tablet 25 mg PO DAILY RF: 0 lisinopril 20 mg tablet 20 mg PO BID RF: 0 amlodipine 5 mg Tablet 7.5 mg PO DAILY RF: 0 metoprolol tartrate 25 mg Tablet 12.5 mg PO BID RF: 0 trospium 60 mg Capsule,Extended Release 24hr 60 mg PO DAILY RF: 0 Pradaxa 150 mg Capsule 150 mg PO BID RF: 0 Follow up/Referrals: Lukasz Ingram [Primary Care Provider] - Provider Discharge Instructions Diet: Regular Visit Report/Discharge Packet Instructions: Amoxicillin, Ciprofloxacin (By mouth) Discharge Data Primary Care Provider: Lukasz Ingram Attending Provider: Yvette Lazo Admit Date/Time: 09/06/18 13:29 Quality VTE Deep Vein Thrombosis/Pulmonary Embolism Present on Admission: No
--- NOTE | 2018-09-08 13:42 | OT.IP.TRT ---
Current Diagnoses Hemorrhage of anus and rectum (09/06/18) Surgery Performed Operation Date: 09/08/18 09:15 Actual Procedures p Colonoscopy - Jason Carlson MD Occupational Therapy Treatment Note M2 OT-IP Current Condition Start: 09/08/18 13:33 Freq: Status: Active Protocol: Document 09/08/18 13:33 [facility] (Rec: 09/08/18 13:42 [facility] [id number]) Occupational Therapy Current Condition Current Condition Evaluation Date 09/08/18 Treatment Diagnosis vaginal bleeding Diagnosis Onset Date 09/06/18 Weight Bearing Status Weight Bearing Status Weight Bear as Tolerated M3 OT- IP Subjective and Pain Start: 09/08/18 13:33 Freq: Status: Active Protocol: Document 09/08/18 13:33 [facility] (Rec: 09/08/18 13:42 [facility] [id number]) OT- Subjective Occupational Therapy Visit Type Type Treatment Note Visit Start Time 11:40 Visit Stop Time 11:50 Total Visit Minutes 10 Occupational Therapy Visit Comments Patient Comments Pt not wanting to get up but open to talk about possible OT needs at home. Pt's sister present for OT session. Patient/Caregiver Goals To go home. M6 OT- IP Functional Cognition Start: 09/08/18 13:33 Freq: Status: Active Protocol: Document 09/08/18 13:33 [facility] (Rec: 09/08/18 13:42 [facility] [id number]) Cognitive Factors Limiting Selfcare Function Cognitive Ability Level of Alertness Alert Patient Orientation Name Place Situation Attention Span Ability Capable of Focused Attention Capable of Sustained Attention Safety Awareness Underestimates Need for Assistance Problem Solving Ability Needs Assist to Identify Solutions Cognitive Comments Cognitive Assessment Comments Pt not aware that disposable briefs that she wearing at home needs to be changed when soiled. Pt states had been wearing the brief all day. Edcuated pt and sister that is should be changed after being soiled to prevent infections. Also recommended pt to get shower chair, HHSP, and BSC. In addition strongly emphasized may need device for mobility needs as pt not open at this time. PT to see pt later to assess .
--- NOTE | 2018-09-08 14:12 | DIET.PN ---
F/U consult: Pt diet advanced to full liquids now. Says she tried some of the Ensure Clear - was ok. Eating very little still Nutrition Dx: Severe acute illness pcm r/t inflammation of illness, poor diet, inadequate PO intake AEB wt loss w/6% change in1-2 mo, evidence of muscle and fat loss. Assessment: Continued poor PO intake. Intervention: Add Ensure Enlive to meals as discussed Plan: Monitor PO intake
--- NOTE | 2018-09-08 14:17 | PC.NURSE ---
Pt dressed, packed up and ready to discharge home with her Sister. Went over d/c instructions with Pt and Sister, discussed d/c meds, time of last dose, stroke education, diet, and reminder to call her physician or return to the hospital if bleeding resumes. Pt denies futher questions and was taken out to POV via w/c by [employer] with Sister and all belongings.
== END 2018-09-08 14:20 | disposition home or self-care (01) | DRG 377 ==
LOC: ED 13:14 → AC 13:30
PROVIDERS: Nurse Practitioner Adult Health; Surgery; Admitting Provider Internal Medicine; Emergency Provider Emergency Medicine; Family Provider Physician Assistant; PCP Physician Assistant; Visit Provider Internal Medicine
PROC: 0DJD8ZZ Inspection of Lower Intestinal Tract, Via Natural or Artificial Opening Endoscopic (ICD-10-PCS; CPT 45378; principal; 2018-09-08 09:15)
DX: K62.5 Hemorrhage of anus and rectum (principal); E43 Unspecified severe protein-calorie malnutrition; N39.0 Urinary tract infection, site not specified; D62 Acute posthemorrhagic anemia; E87.6 Hypokalemia; F03.90 Unspecified dementia, unspecified severity, without behavioral disturbance, psychotic disturbance, mood disturbance, and anxiety; I48.91 Unspecified atrial fibrillation; I10 Essential (primary) hypertension; Z79.01 Long term (current) use of anticoagulants
CPT/HCPCS: 36415; 36430; 45378; 74177; 80048; 80053; 81001; 83735; 85014; 85018; 85025; 85027; 86850; 86900; 86901; 87077; 87086; 87186; 93005; 94760; 94762; 96365; 97116; 97161; 97530; 99152; 99232; 99283; 99284; P9016; C9113; J2704; J3480; Q9967